=== PATIENT | male | born 1985 | race Native Hawaiian/Other Pacific Islander ===

== ENCOUNTER 2020-04-16 09:09 | Outpatient (REF) | payer OTHER, SELFPAY | END 2020-04-16 09:10 | disposition home or self-care (01) | LOC: HO.LAB 09:09 | PROVIDERS: Visit Provider Internal Medicine | DX: Z20.822 Contact with and (suspected) exposure to COVID-19 (principal) | CPT/HCPCS: 36415; C9803; U0003 ==

== ENCOUNTER 2020-07-23 10:43 | Outpatient (REF) | payer BC, SELFPAY ==
[2020-07-23 14:21] LABS: Hematocrit 47.5 % (42-52); Hemoglobin 15.9 g/dl (14.0-18.0); Mean Corpuscular HGB Conc 33.5 g/dl (31.0-36.0); Mean Corpuscular Hemoglobin 29.5 pg (27.0-33.0); Mean Corpuscular Volume 88.1 fL (80-98); Mean Platelet Volume 10.7 fL (9.4-12.4); Platelet Count 226 X10*3/uL (160-400); Red Blood Count 5.39 X10*6/uL (4.60-5.80); Red Cell Distribution Width 12.2 % (11.0-16.0); White Blood Count 9.1 X10*3/uL (4.8-10.8)
[2020-07-23 14:30] LABS: Estimated Average Glucose 266 mg/dL; Hemoglobin A1c % 10.9 %
[2020-07-23 14:42] LABS: Anion Gap 17 (12-20); Blood Urea Nitrogen 15 mg/dL (9-16); Calcium 9.2 mg/dL (8.4-10.2); Carbon Dioxide 23 mmol/L (22-29); Chloride 99 mmol/L (96-108); Cholesterol 155 mg/dL; Estimated Glomerular Filt Rate > 60; Glucose Random 385 mg/dL (60-115); HDL Cholesterol 35 mg/dL; LDL Cholesterol Calculated 68 mg/dl; Potassium 4.4 mmol/L (3.3-5.1); Sodium 135 mmol/L (135-145); Triglycerides 260 mg/dL
[2020-07-23 14:55] LABS: Thyroid Stimulating Hormone 1.28 uIU/mL (0.32-4.0)
[2020-07-23 15:09] LABS: Vitamin B12 573 pg/mL (200-900)
== END 2020-07-23 10:44 | disposition home or self-care (01) ==
LOC: HO.HMGCLDS 10:43
PROVIDERS: PCP Internal Medicine; Visit Provider Internal Medicine
DX: E11.9 Type 2 diabetes mellitus without complications (principal)
CPT/HCPCS: 36415; 80048; 80061; 82607; 82746; 83036; 84443; 85027

== ENCOUNTER 2020-08-06 16:42 | Outpatient (REF) | payer BC, SELFPAY ==
--- NOTE | ~2020-08-06 | XR_ITS ---
EXAMINATION: XR LUMBOSACRAL SPINE CLINICAL INFORMATION: Radiculopathy. Pain COMPARISON: None TECHNIQUE: Three views of the lumbosacral spine. FINDINGS: There is mild straightening of lumbar lordosis. The vertebral heights and alignment is normal. There is loss of L5-S1 disc height. Rest of the disc heights are maintained normal. No visible acute fracture, dislocation or lytic process seen. The paravertebral soft tissues are normal. XR/XR lumbar spine 2-3V IMPRESSION: Mild degenerative disc changes L5-S1 disc level. No visible acute fracture or dislocation seen.
== END 2020-08-06 16:43 | disposition home or self-care (01) ==
LOC: HO.XRAY 16:42
PROVIDERS: PCP Internal Medicine; Visit Provider Internal Medicine
DX: M54.17 Radiculopathy, lumbosacral region (principal)
CPT/HCPCS: 72100

== ENCOUNTER 2020-08-08 16:00 | Outpatient (RCR) | payer OTHER, BC, MEDICAID, SELFPAY ==
--- NOTE | 2020-07-12 08:06 | MHC.PT.EP ---
[facility] [place] Office [place] Office [place] Office [address] Alejandra Lafleur [address] [phone] F: [phone] F: [phone] F: [phone] F: [phone] Physical Therapy Plan of Care Date of Evaluation: 07/12/20 Date of Surgery: Diagnosis: lumbago with sciatica Assessment: The patient resports with a classic posterolateral derangement classified by varying degrees of pain, more pain with flexion/bending, intermittent radicular pain, and improvement with extension forces. I gave him several point of education regarding sitting posture, chair preferences, avoidance of flexion, education regarding holding his one year old, lifting mechanics, and maintaining neutral spine when possible. He will likely respond to the Vera Method progressing to postural strengthening. He is a good candidate for skilled PT. Frequency and Duration: The patient will be seen 2x/week x 4 weeks Short Term Goals: 1.Pt to able to demonstrate proper sitting posture with the use of a lumbar roll to decrease aggravating factors. 2.Pt to be able to demonstrate proper posture for common leisure activities such as crocheting and phone/tablet use. 3.For the patient to demonstrate proper upright sitting posture with use of the lumbar roll to improve compliance and carryover. [employer] Goals: 1.The patient to demonstrate proper lifting mechanics for household chore activities to show improved functional mobility. 2.The patient to report no leg or hip pain in order to show centralization of pain and reduction of lumbar derangement 3. Pt to be able to demonstrate self management of lumbar pain by demonstration of HEP. Treatment Plan: Modalities to reduce pain, spasms and effusion. Manual therapy to restore motion and function. Therapeutic exercise to improve strength and flexibility. Neuromuscular re-education for posture and balance. Therapeutic activities to return to functional activities of daily living. Electronically signed by: Matilde Alvarado PT DPT Please sign and return to therapist. Thank you for your referral.
--- NOTE | 2020-09-05 15:44 | MHC.PT.DC ---
[facility] [place] Office [place] Office [place] Office [address] Alejandra Lafleur [address] [phone] F: [phone] F: [phone] F: [phone] F: [phone] Physical Therapy Discharge Report Diagnosis: lumbago with sciatica Date of Surgery: DOI 06/22/20 Date of Evaluation: 07/12/20 Date of Discharge: 09/05/20 Treatments to Date: 5 Cancellations to Date: 1 No Shows to Date: 0 Discharge Status: Insurance Declined Tx Discharge Summary: Charlie d/c from therapy due to lack of insurance coverage. He would return to therapy when he had new insurance. Electronically signed by: Renetta Lornezo PT, DPT Please sign and return to therapist. Thank you for your referral.
== END 2020-09-05 15:44 | disposition other institution (70) ==
LOC: HO.PT 16:00
PROVIDERS: PCP Internal Medicine; Visit Provider Internal Medicine
DX: M54.40 Lumbago with sciatica, unspecified side (principal)
CPT/HCPCS: 97014; 97110; 97112; 97140; 97162; 97530

== ENCOUNTER 2020-11-21 14:17 | Outpatient (REF) | payer OTHER, SELFPAY ==
--- NOTE | ~2020-11-21 | XR_ITS ---
EXAMINATION: PRE-MRI SCREENING ORBITS. CLINICAL INFORMATION: History of radiopaque foreign body. COMPARISON: None TECHNIQUE: 3 views. FINDINGS: There are no radiopaque foreign body seen in the orbits . The paranasal sinuses are clear. The soft tissues are normal. XR/XR pre mri screening IMPRESSION: No radiopaque foreign body seen in the orbits.
--- NOTE | ~2020-11-21 | MR_ITS ---
MR LUMBAR SPINE WITHOUT CONTRAST CLINICAL INFORMATION: Lumbosacral region radiculopathy. COMPARISON: Lumbar spine radiographs 08/06/2020. TECHNIQUE: MRI of the lumbar spine was obtained using routine sequences without contrast. FINDINGS: There are 5 nonrib-bearing lumbar-type vertebral bodies. Lumbar alignment is normal. Vertebral body heights are maintained. Disc desiccation at the L3-L4, L4-L5, and L5-S1 levels. There is no bone marrow edema. There are no acute fractures. Conus terminates at the L1 level. No significant extra spinal soft tissue findings. Fatty filum terminale. L1-L2: Disc contour is normal. Mild bilateral facet arthropathy. No central canal stenosis and no foraminal stenosis. L2-L3: Small annular disc bulge and mild bilateral facet arthropathy. No central canal stenosis. Mild foraminal encroachment bilaterally. L3-L4: Small annular disc bulge the superimposed shallow central disc protrusion and moderate bilateral facet arthropathy. Mild narrowing of the central canal. Mild bilateral foraminal encroachment. L4-L5: Small annular disc bulge and moderate bilateral facet arthropathy. No central canal stenosis. Mild to moderate bilateral foraminal stenosis. L5-S1: There is an inferiorly migrating left paracentral disc extrusion that compresses the traversing left S1 nerve root within the left S1 lateral recess. Moderate central canal stenosis. Disc osteophyte and facet arthropathy result in moderate bilateral foraminal stenosis with mild mass effect on the exiting L5 nerve roots bilaterally. MR/MR lumbar spine wo con IMPRESSION: Multilevel lumbar spondylosis, greatest at L5-S1 where an inferiorly migrating left paracentral disc extrusion compresses the traversing left S1 nerve root within the left S1 lateral recess and contributes to moderate central canal stenosis. There is moderate bilateral foraminal stenosis at L5-S1 with mild mass effect on the exiting L5 nerve roots bilaterally. Additional degenerative findings throughout the lumbar spine as described.
== END 2020-11-21 14:18 | disposition home or self-care (01) ==
LOC: HO.MRI 14:17
PROVIDERS: PCP Internal Medicine; Visit Provider Internal Medicine
DX: M54.17 Radiculopathy, lumbosacral region (principal)
CPT/HCPCS: 72148

== ENCOUNTER → 2020-12-06 09:57 | Outpatient (BNVA) | payer BC, MEDICAID, SELFPAY | PROVIDERS: PCP Internal Medicine; Referring Provider Internal Medicine; Visit Provider Physician Assistant ==

== ENCOUNTER → 2020-12-26 08:15 | Outpatient (BNVA) | payer BC, MEDICAID, SELFPAY | PROVIDERS: PCP Internal Medicine; Visit Provider Surgery ==

== ENCOUNTER 2020-12-31 12:22 | Outpatient (REF) | payer BC, MEDICAID, SELFPAY ==
--- NOTE | ~2020-12-31 | XR_ITS ---
EXAMINATION: XR CHEST CLINICAL INFORMATION: Obesity COMPARISON: None TECHNIQUE: 2 views of the chest were obtained. FINDINGS: No significant abnormality is noted involving the heart, lungs, mediastinum, bony thorax or soft tissues. XR/XR chest 2V IMPRESSION: Unremarkable examination.
--- NOTE | 2020-12-31 13:01 | ECG_ITS ---
Test Reason : obesity Blood Pressure : / mmHG Vent. Rate : 092 BPM Atrial Rate : 092 BPM P-R Int : 176 ms QRS Dur : 096 ms QT Int : 370 ms P-R-T Axes : 033 042 026 degrees QTc Int : 457 ms Normal sinus rhythm Normal ECG When compared with ECG of 26-JUN-2017 17:43, No significant change was found Referred By: Vasyl Lambert Electronically Signed By:MONIK GUY
[2020-12-31 13:45] LABS: MANUAL DIFF FLAG NO
[2020-12-31 13:59] LABS: Basophils Absolute Auto 0.1 X10*3/uL (0.0-0.2); Basophils Percent Auto 0.8 % (0-2); Eosinophils Absolute Auto 0.2 X10*3/uL (0.0-0.4); Eosinophils Percent Auto 2.3 % (0-4); Hematocrit 44.4 % (42-52); Hemoglobin 15.3 g/dl (14.0-18.0); Imm Gran Abs Auto 0.05 X10*3/uL (0.00-0.03); Imm Gran Pct Auto 0.7 % (0.0-0.4); Lymphocytes Absolute Auto 2.6 X10*3/uL (1.2-4.9); Lymphocytes Percent Auto 33.8 % (20-40); Mean Corpuscular HGB Conc 34.5 g/dl (31.0-36.0); Mean Corpuscular Hemoglobin 29.4 pg (27.0-33.0); Mean Corpuscular Volume 85.4 fL (80-98); Mean Platelet Volume 10.5 fL (9.4-12.4); Monocytes Absolute Auto 0.6 X10*3/uL (0.1-1.2); Monocytes Percent Auto 7.3 % (2-11); Neutrophils Absolute Auto 4.2 X10*3/uL (2.0-8.3); Neutrophils Percent Auto 55.1 % (45-73); Platelet Count 240 X10*3/uL (160-400); Red Cell Distribution Width 12.3 % (11.0-16.0); White Blood Count 7.6 X10*3/uL (4.8-10.8)
[2020-12-31 14:11] LABS: Estimated Average Glucose 255 mg/dL; Hemoglobin A1c % 10.5 %
[2020-12-31 14:22] LABS: Alanine Aminotransferase 110 U/L (0-40); Albumin Level 4.7 g/dL (3.5-5.0); Alkaline Phosphatase 79 U/L (39-117); Anion Gap 15 (12-20); Aspartate Amino Transferase 47 U/L (5-37); Bilirubin Total 0.9 mg/dL (0.0-1.0); Blood Urea Nitrogen 10 mg/dL (9-16); C Reactive Protein 0.68 mg/dL (< or = 0.50); Calcium 9.5 mg/dL (8.4-10.2); Carbon Dioxide 27 mmol/L (22-29); Chloride 103 mmol/L (96-108); Cholesterol 157 mg/dL; Estimated Glomerular Filt Rate > 60; Glucose Random 306 mg/dL (60-115); HDL Cholesterol 38 mg/dL; Iron 95 mcg/dL (45-160); LDL Cholesterol Calculated 86 mg/dl; Percent Iron Saturation 27 % (15-50); Potassium 4.6 mmol/L (3.3-5.1); Sodium 140 mmol/L (135-145); Total Iron Binding Capacity 350 mcg/dL (228-428); Total Protein 7.8 g/dL (6.5-8.0); Triglycerides 165 mg/dL; Unsaturated Iron Binding 255 ug/dL
[2020-12-31 14:40] LABS: Ferritin 674 ng/mL (20-250); TSH reflex Free T4 1.87 uIU/mL (0.32-4.0); Vitamin D 25-OH Total 31.4 ng/mL (>30)
[2020-12-31 15:18] LABS: Folate 18.2 ng/mL (> or = 4.0); Vitamin B12 573 pg/mL (200-900)
[2020-12-31 16:01] LABS: Appearance Urine CLEAR; Color Urine YELLOW; Glucose Urine UA >=1000 MG/DL (NEG); Leukocyte Esterase Urine NEG (NEG); Nitrite Urine NEG (NEG); PH 5.5 (5.0-8.0); Specific Gravity - Urine >= 1.030 (1.005-1.025); Urine Blood NEG (NEG); Urine Ketones 5 MG/DL (NEG); Urine Protein NEG (NEG-TRACE)
[2020-12-31 16:10] LABS: Creatinine Urine 178.85 mg/dL; Microalbum/Creatinine Ratio Ur 12.3 ug/mg cr
[2020-12-31 16:58] LABS: Mucus Urine TRACE /LPF; RBC Urine 0-2 /HPF (0); Squamous Epithelial Cell Urine TRACE /LPF; WBC Urine 0 /HPF (0-4)
[2021-01-01 16:16] LABS: Calcium (PTHI) 8.9 mg/dL (8.6-10.3); PTHI 61 pg/mL (14-64)
[2021-01-02 01:06] LABS: Insulin Level Total 15.8 uIU/mL
[2021-01-03 06:57] LABS: Zinc 88 mcg/dL (60-130)
[2021-01-05 00:22] LABS: Vitamin A 37 mcg/dL (38-98)
[2021-01-05 12:17] LABS: Vitamin B1 14 nmol/L (8-30)
== END 2020-12-31 12:23 | disposition home or self-care (01) ==
LOC: HO.XRAY 12:22
PROVIDERS: Absent Provider Internal Medicine; PCP Internal Medicine; Visit Provider Surgery
DX: Z00.00 Encounter for general adult medical examination without abnormal findings (principal); E66.9 Obesity, unspecified; E11.65 Type 2 diabetes mellitus with hyperglycemia; G47.30 Sleep apnea, unspecified; I10 Essential (primary) hypertension
CPT/HCPCS: 36415; 71046; 80053; 80061; 81001; 81003; 82043; 82306; 82607; 82728; 82746; 83036; 83525; 83540; 83970; 84425; 84443; 84590; 84630; 85025; 86140; 93005

== ENCOUNTER → 2021-01-21 08:05 | Outpatient (BNVA) | payer BC, MEDICAID, SELFPAY | PROVIDERS: PCP Internal Medicine; Visit Provider Surgery ==

== ENCOUNTER → 2021-01-23 08:12 | Outpatient (BNVA) | payer BC, MEDICAID, SELFPAY | PROVIDERS: PCP Internal Medicine; Visit Provider Dietitian, Registered | DX: E66.9 Obesity, unspecified (principal) | CPT/HCPCS: 97802 ==

== ENCOUNTER 2021-01-24 09:57 | Outpatient (REF) | payer BC, MEDICAID, SELFPAY | END 2021-01-24 09:58 | disposition home or self-care (01) | LOC: HO.SL 09:57 | PROVIDERS: PCP Internal Medicine; Visit Provider Surgery | DX: G47.10 Hypersomnia, unspecified (principal); G47.19 Other hypersomnia; G47.30 Sleep apnea, unspecified; E66.9 Obesity, unspecified; I10 Essential (primary) hypertension | CPT/HCPCS: 95806 ==

== ENCOUNTER → 2021-02-07 14:05 | Outpatient (BNVA) | payer BC, MEDICAID, SELFPAY | PROVIDERS: PCP Internal Medicine; Visit Provider Internal Medicine ==

== ENCOUNTER → 2021-03-18 08:09 | Outpatient (BNVA) | payer BC, MEDICAID, SELFPAY | PROVIDERS: PCP Internal Medicine; Visit Provider Surgery ==

== ENCOUNTER 2021-03-19 08:11 | Outpatient (REF) | payer BC, MEDICAID, OTHER, SELFPAY ==
[2021-03-20 14:08] LABS: H Pylori Breath Test Negative (Negative)
== END 2021-03-19 08:12 | disposition home or self-care (01) ==
LOC: HO.LNP 08:11
PROVIDERS: Surgery; PCP Internal Medicine; Referring Provider Internal Medicine; Visit Provider Physician Assistant Surgical
DX: E66.9 Obesity, unspecified (principal); I10 Essential (primary) hypertension; G47.30 Sleep apnea, unspecified
CPT/HCPCS: 83013

== ENCOUNTER 2021-03-26 14:30 | Emergency (ER) | payer BC, SELFPAY ==
--- NOTE | ~2021-03-26 | XR_ITS ---
EXAMINATION: XR CHEST CLINICAL INFORMATION: SOB. COMPARISON: Chest 12/31/2020 TECHNIQUE: Frontal view of the chest was obtained. FINDINGS: The lungs are well-expanded with patchy groundglass opacities in right middle lobe. Question developing infiltrate. Rest of lungs are clear. The heart size and pulmonary vascularity is normal. No gross bony abnormality seen. XR/XR chest 1V IMPRESSION: Question developing infiltrate right lower lobe. No acute cardiopulmonary process seen.
[2021-03-26 15:46] VITALS: BP 124/67; PULSE 97; RESP 16; TEMP 37.3; O2SAT 98; BMI 34.9
[2021-03-26 16:06] LABS: Basophils Percent Auto 0.1 % (0-2); Eosinophils Percent Auto 0.1 % (0-4); Hematocrit 43.7 % (42.0-52.0); Hemoglobin 14.6 g/dl (14.0-18.0); Imm Gran Abs Auto 0.04 X10*3/uL (0.00-0.03); Imm Gran Pct Auto 0.6 % (0.0-0.4); Lymphocytes Absolute Auto 1.7 X10*3/uL (1.2-4.9); Lymphocytes Percent Auto 24.9 % (20-40); MANUAL DIFF FLAG SCAN; Mean Corpuscular HGB Conc 33.4 g/dl (31.0-36.0); Mean Corpuscular Hemoglobin 29.4 pg (27.0-33.0); Mean Corpuscular Volume 87.9 fL (80.0-98.0); Mean Platelet Volume 10.4 fL (9.4-12.4); Monocytes Absolute Auto 0.5 X10*3/uL (0.1-1.2); Monocytes Percent Auto 7.1 % (2-11); Neutrophils Absolute Auto 4.6 x10*3/uL (2.0-8.3); Neutrophils Percent Auto 67.2 % (45-73); Platelet Count 161 X10*3/uL (160-400); Red Blood Count 4.97 X10*6/uL (4.60-5.80); Red Cell Distribution Width 12.1 % (11.0-16.0); SCAN SMEAR FLAG 1; White Blood Count 6.9 X10*3/uL (4.8-10.8)
[2021-03-26 16:20] LABS: Anion Gap 15 (12-20); Blood Urea Nitrogen 12 mg/dL (9-16); Carbon Dioxide 31 mmol/L (22-29); Chloride 99 mmol/L (96-108); Creatinine Clr Calc Pharmacy 115.3; Estimated Glomerular Filt Rate > 60; Glucose Random 243 mg/dL (60-115); Potassium 4.5 mmol/L (3.3-5.1); Sodium 140 mmol/L (135-145)
[2021-03-26 16:38] LABS: SLIDE REVIEW VERIFIED
--- NOTE | 2021-03-26 17:13 | ED_ITS ---
HPI - SOB/Dyspnea General Chief Complaint: Dyspnea Stated Complaint: COVID+, SOB, Chest pain Time Seen by Provider: 03/26/21 16:53 Source: patient Mode of arrival: ambulatory History of Present Illness HPI Narrative: 35-year-old male with past medical history of anxiety, depression, hypertension, obesity, JULIA, diabetes, presenting to the ED complaining cough, fever, myalgias, generalized fatigue, SOB, chest discomfort worse with breathing/movement, lightheadedness, decreased p.o. intake s/p testing positive for COVID-19 five days ago. Denies recent travel, pedal edema, cigarette smoking, calf pain MD elicited complaint: shortness of breath, cough, pain with inspiration and chest pain Related Data Previous Rx's Medication Instructions Recorded blood sugar diagnostic (FreeStyle #100 ea 09/14/20 Lite Strips) blood-glucose meter (FreeStyle #1 ea 09/14/20 Lite Meter) lancets 28 gauge (FreeStyle #100 ea 09/14/20 Lancets) metformin 500 mg tablet 500 mg PO BID #180 tab 02/04/21 nabumetone 500 mg tablet 500 mg PO BID PRN 30 Days #60 tab 02/05/21 acetaminophen 500 mg tablet 500 mg PO Q6H PRN #20 tab 03/26/21 (Tylenol Extra Strength) albuterol sulfate 90 mcg/actuation 2 puff INHALATION Q4-6H PRN #6.7 g 03/26/21 aerosol inhaler doxycycline hyclate 100 mg tablet 100 mg PO BID 7 Days #14 tab 03/26/21 Allergies Allergy/AdvReac Type Severity Reaction Status Date / Time dexamethasone Allergy Mild Hives Verified 02/07/21 14:16 Review of Systems Review of Systems: Constitutional: + Fever, + Chills, No Night Sweats, + Fatigue, No Malaise ENT/Mouth: No Ear Pain, + Nasal Congestion, No sore throat, + Rhinorrhea, No Swallowing Difficulty Eyes: No Eye Pain, No Discharge, No Vision Changes Cardiovascular: + Chest Pain, + SOB, No Dyspnea on Exertion, No Orthopnea, No Edema, No Palpitations Respiratory: No Cough, No Sputum, No Wheezing, No Dyspnea Gastrointestinal: + Nausea, No Vomiting, + Diarrhea, No Constipation, No Abdominal pain Genitourinary: No Dysuria, No Flank Pain, No Urinary Flow Changes, No Hesitancy Musculoskeletal: No joint pain, No Myalgias, No Joint Swelling Skin: No Skin Lesions, No rash Neuro: + Weakness, No Loss of Consciousness, +Lightheadedness, No Headache Yes all other systems are reviewed and are negative [facility] Past Medical History Attestation statement: The following information was validated with the patient. Medical History Anxiety Depression Headache Hypertension Left lumbosacral radiculopathy Low back pain radiating to left lower extremity Low back pain with sciatica Non-insulin dependent diabetes mellitus Obesity (BMI 30-39.9) Obstructive sleep apnea Sleep apnea Type 2 diabetes mellitus with hyperglycemia Type 2 diabetes mellitus without complications Surgical History No history of previous surgery Family History Family History Mother No problems noted. Father No problems noted. Social History Social History Housing: Apartment Alcohol intake: current Alcohol intake frequency: holidays/special occasions only Patient Tobacco Use Status: Never used Tobacco Advance Directives: No Advance Directives Information Provided: No service: No Current occupational status: unemployed Physical Exam Vital Signs: Vital Signs: Last Vital Signs Temp 99.3 F 03/26/21 18:02 Pulse 100 03/26/21 18:02 Resp 18 03/26/21 18:02 BP 113/70 03/26/21 18:02 Pulse Ox 95 03/26/21 18:02 BMI result Body Mass Index 34.9 Const: General: cooperative, healthy appearing, comfortable and no acute distress Orientation/consciousness: patient oriented x3 Limitations: no limitations HENMT: Head: Yes normal to inspection Ears: hearing grossly normal bilaterally General nose exam: Normal external nose present Face and sinus: Yes normal facial exam Eyes: General: appearance normal, both eyes and all related structures EOM: EOMs intact bilaterally Neck: Neck: Yes normal visual inspection and Yes no meningeal signs Resp: Effort & Inspection: normal respiratory effort Auscultation: clear to auscultation bilaterally, no rales, rhonchi right lower and no wheezes Cardio: Rate: regular rate Heart sounds: S1 normal heart sound present and S2 normal heart sound present GI: Inspection: Yes normal to inspection Palpation (GI): Soft to palpation, nontender, no guarding and not rigid Skin: Rashes: no rashes Wounds: no wounds Neuro: General: patient oriented x3 and no meningeal signs Gait exam (Neuro): Normal gait present Extrem: General: Yes normal to inspection, Yes no pedal edema and Yes no calf tenderness Course Course Course Narrative: XR chest 1V IMPRESSION: Question developing infiltrate right lower lobe. No acute cardiopulmonary process seen. -1725--no leukocytosis. H&H stable. -1834--D-dimer negative. Lactic negative. Troponin negative. AST/ALT chronically elevated. LDH/CRP mildly elevated >> results discussed with patient including worrisome signs and symptoms and strict return precautions and needed close follow-up with PCP MDM - SOB/Dyspnea MDM Narrative Medical decision making narrative: 35-year-old male with past medical history of anxiety, depression, hypertension, obesity, JULIA, diabetes, presenting to the ED complaining cough, fever, myalgias, generalized fatigue, SOB, chest discomfort worse with breathing/movement, lightheadedness, decreased p.o. intake s/p testing positive for COVID-19 five days ago. On exam low-grade temp 99.1?, rhonchi in RLL, no pedal edema. Concern for continued viral syndrome/COVID-19 vs COVID pneumonia vs PE. Symptoms atypical for ACS. Low concern for sepsis as known viral etiology Plan: EKG, labs, CXR, IVF, lactic/blood cultures Differential Diagnosis Differential diagnosis: Likely acute exacerbation of chronic obstructive airways disease, pneumonia, asthma with exacerbation and pulmonary embolism Medical Records Attestation: I reviewed the patient's medical records. Lab Data Attestation: I reviewed the patient's lab results. Result diagrams: 03/26/21 15:58 03/26/21 15:58 Labs: Lab Results 03/26/21 03/26/21 03/26/21 Range/Units 15:58 15:58 15:58 WBC 6.9 (4.8-10.8) X10*3/uL RBC 4.97 (4.60-5.80) X10*6/uL Hgb 14.6 (14.0-18.0) g/dl Hct 43.7 (42.0-52.0) % MCV 87.9 (80.0-98.0) fL MCH 29.4 (27.0-33.0) pg MCHC 33.4 (31.0-36.0) g/dl RDW 12.1 (11.0-16.0) % Plt Count 161 (160-400) X10*3/uL MPV 10.4 (9.4-12.4) fL Immature Gran % (Auto) 0.6 H (0.0-0.4) % Neut % (Auto) 67.2 (45-73) % Lymph % (Auto) 24.9 (20-40) % [facility] % (Auto) 7.1 (2-11) % Eos % (Auto) 0.1 (0-4) % Baso % (Auto) 0.1 (0-2) % Lymph # (Auto) 1.7 (1.2-4.9) X10*3/uL [facility] # (Auto) 0.5 (0.1-1.2) X10*3/uL Eos # (Auto) 0.0 (0.0-0.4) X10*3/uL Baso # (Auto) 0.0 (0.0-0.2) X10*3/uL Abs Immat Gran (auto) 0.04 H (0.00-0.03) X10*3/uL Absolute Neuts (auto) 4.6 (2.0-8.3) x10*3/uL Absolute Nucleated RBC 0.000 (0.0-0.012) X10*3/uL Nucleated RBC % (auto) 0.0 (0.0-0.2) /100WBC Smear Tech's Comments VERIFIED D-Dimer High Sensitivty NG/ML Sodium 140 (135-145) mmol/L Potassium 4.5 (3.3-5.1) mmol/L Chloride 99 (96-108) mmol/L Carbon Dioxide 31 H (22-29) mmol/L Anion Gap 15 (12-20) BUN 12 (9-16) mg/dL Creatinine 1.09 (0.5-1.4) mg/dL Estim Creat Clear Calc 115.3 Estimated GFR > 60 Random Glucose 243 H (60-115) mg/dL Lactic Acid (0.5-2.0) mmol/L Calcium 9.0 (8.4-10.2) mg/dL Magnesium 2.3 (1.6-2.6) mg/dL Ferritin 2557 H (20-250) ng/mL Total Bilirubin 1.0 (0.0-1.0) mg/dL Direct Bilirubin 0.5 (0.0-0.5) mg/dL AST 72 H (5-37) U/L ALT 128 H (0-40) U/L Alkaline Phosphatase 62 D (39-117) U/L Lactate Dehydrogenase 374 H (118-273) U/L Troponin I High Sens (<3.5-35.0) ng/L C-Reactive Protein 5.86 H (< or = 0.50) mg/dL B-Natriuretic Peptide (<100) pg/mL Total Protein 7.7 (6.5-8.0) g/dL Albumin 4.2 (3.5-5.0) g/dL Procalcitonin 0.11 ng/mL 03/26/21 03/26/21 03/26/21 Range/Units 15:58 17:49 17:49 WBC (4.8-10.8) X10*3/uL RBC (4.60-5.80) X10*6/uL Hgb (14.0-18.0) g/dl Hct (42.0-52.0) % MCV (80.0-98.0) fL MCH (27.0-33.0) pg MCHC (31.0-36.0) g/dl RDW (11.0-16.0) % Plt Count (160-400) X10*3/uL MPV (9.4-12.4) fL Immature Gran % (Auto) (0.0-0.4) % Neut % (Auto) (45-73) % Lymph % (Auto) (20-40) % [facility] % (Auto) (2-11) % Eos % (Auto) (0-4) % Baso % (Auto) (0-2) % Lymph # (Auto) (1.2-4.9) X10*3/uL [facility] # (Auto) (0.1-1.2) X10*3/uL Eos # (Auto) (0.0-0.4) X10*3/uL Baso # (Auto) (0.0-0.2) X10*3/uL Abs Immat Gran (auto) (0.00-0.03) X10*3/uL Absolute Neuts (auto) (2.0-8.3) x10*3/uL Absolute Nucleated RBC (0.0-0.012) X10*3/uL Nucleated RBC % (auto) (0.0-0.2) /100WBC Smear Tech's Comments D-Dimer High Sensitivty 174 NG/ML Sodium (135-145) mmol/L Potassium (3.3-5.1) mmol/L Chloride (96-108) mmol/L Carbon Dioxide (22-29) mmol/L Anion Gap (12-20) BUN (9-16) mg/dL Creatinine (0.5-1.4) mg/dL Estim Creat Clear Calc Estimated GFR Random Glucose (60-115) mg/dL Lactic Acid 1.0 (0.5-2.0) mmol/L Calcium (8.4-10.2) mg/dL Magnesium (1.6-2.6) mg/dL Ferritin (20-250) ng/mL Total Bilirubin (0.0-1.0) mg/dL Direct Bilirubin (0.0-0.5) mg/dL AST (5-37) U/L ALT (0-40) U/L Alkaline Phosphatase (39-117) U/L Lactate Dehydrogenase (118-273) U/L Troponin I High Sens < 3.5 (<3.5-35.0) ng/L C-Reactive Protein (< or = 0.50) mg/dL B-Natriuretic Peptide < 10 (<100) pg/mL Total Protein (6.5-8.0) g/dL Albumin (3.5-5.0) g/dL Procalcitonin ng/mL ECG Data Attestation: I personally reviewed and interpreted this ECG as follows: ECG interpretation date: 03/26/21 Discharge Plan Discharge Clinical Impression: Pneumonia due to COVID-19 virus Patient Disposition: Home, Self-Care Instructions: Covid-19 Viral Syndrome and Novel Coronavirus (ED) Hey/Ath Additional Instructions: Your x-ray shows developing COVID pneumonia. Doxycycline is antibiotic please take as prescribed In addition albuterol in have helped shortness of breath/wheezing Monitor your temperatures at, take Tylenol for fever. If fevers not result Tylenol take Motrin Your blood work was reassuring If symptoms persist or worsen, you develop constant worsening shortness of breath, chest pain, fever unresolved with medications please return to the ED Prescriptions: New acetaminophen [Tylenol Extra Strength] 500 mg tablet 500 mg PO Q6H PRN (Reason: pain or fever) Qty: 20 RF: 0 doxycycline hyclate 100 mg tablet 100 mg PO BID 7 Days Qty: 14 RF: 0 albuterol sulfate 90 mcg/actuation HFA aerosol inhaler 2 puff inhalation Q4-6H PRN (Reason: shortness of breath or wheezing) Qty: 6.7 RF: 0 No Action metformin 500 mg tablet 500 mg PO BID Qty: 180 RF: 0 nabumetone 500 mg tablet 500 mg PO BID PRN (Reason: headache / pain) 30 Days Qty: 60 RF: 0 (DME) FreeStyle Lite Strips Strip See Rx Instructions .ROUTE .MEDSUPPLY Qty: 100 RF: 12 (DME) blood-glucose meter [FreeStyle Lite Meter] Kit See Rx Instructions .ROUTE .MEDSUPPLY Qty: 1 RF: 0 (DME) lancets [FreeStyle Lancets] 28 gauge misc See Rx Instructions .ROUTE .MEDSUPPLY Qty: 100 RF: 12 Referrals: Quincy Chávez MD [Primary Care Provider] - 3 days (call)
--- NOTE | 2021-03-26 17:23 | ECG_ITS ---
Test Reason : cp Blood Pressure : / mmHG Vent. Rate : 088 BPM Atrial Rate : 088 BPM P-R Int : 182 ms QRS Dur : 086 ms QT Int : 372 ms P-R-T Axes : 038 019 012 degrees QTc Int : 450 ms Normal sinus rhythm Normal ECG When compared with ECG of 31-DEC-2020 13:08, No significant change was found Referred By: Lashae Menchaca Electronically Signed By:TYLER KNOX
[2021-03-26 17:29] LABS: B Type Natriuretic Peptide < 10 pg/mL (<100)
[2021-03-26 17:32] LABS: Alanine Aminotransferase 128 U/L (0-40); Albumin Level 4.2 g/dL (3.5-5.0); Alkaline Phosphatase 62 U/L (39-117); Aspartate Amino Transferase 72 U/L (5-37); Bilirubin Direct 0.5 mg/dL (0.0-0.5); C Reactive Protein 5.86 mg/dL (< or = 0.50); Lactate Dehydrogenase 374 U/L (118-273); Magnesium 2.3 mg/dL (1.6-2.6); Total Protein 7.7 g/dL (6.5-8.0)
[2021-03-26 17:38] LABS: Procalcitonin 0.11 ng/mL
[2021-03-26] MEDS: ondansetron HCL 4 MG/2 ML VIAL IVPUSH (17:52)
[2021-03-26] MEDS: 0.9 % Sodium Chloride 1,000 ML 999 ML IVCONT (17:59)
[2021-03-26 18:02] VITALS: BP 113/70; PULSE 100; RESP 18; TEMP 37.4; O2SAT 95
[2021-03-26] MEDS: Acetaminophen 325 MG TABLET 650 MG PO (18:03)
[2021-03-26 18:07] LABS: D Dimer High Sensitivity 174 NG/ML
[2021-03-26 18:26] LABS: Troponin-I High Sensitivity < 3.5 ng/L (<3.5-35.0)
[2021-03-26 18:41] LABS: Ferritin 2557 ng/mL (20-250)
== END 2021-03-26 19:01 | disposition home or self-care (01) ==
PROVIDERS: Emergency Medicine; Physician Assistant; Emergency Provider Emergency Medicine; PCP Internal Medicine
DX: U07.1 COVID-19 (principal); J12.82 Pneumonia due to coronavirus disease 2019; I10 Essential (primary) hypertension; E11.9 Type 2 diabetes mellitus without complications
CPT/HCPCS: 36415; 71045; 80048; 80076; 82728; 83605; 83615; 83735; 83880; 84145; 84484; 85025; 85379; 86140; 87040; 93005; 96361; 96374; 99284; J2405

== ENCOUNTER 2021-05-09 10:47 | Outpatient (REF) | payer BC, SELFPAY ==
--- NOTE | ~2021-05-09 | US_ITS ---
EXAMINATION: US COMPLETE ABDOMEN WITH LIVER ELASTOGRAPHY CLINICAL INFORMATION: Obesity COMPARISON: None. TECHNIQUE: Real-time imaging of the abdominal viscera. Noninvasive ultrasound liver fibrosis assessment is performed using Chaitanya ElastPQ point quantification shear wave elastography (2D-SWE) with a C5-2 MHz transducer. Multiple elastography samples are obtained. Today's examination is mildly limited secondary to overlying bowel gas. FINDINGS: PANCREAS: Visualized portions of pancreas are normal in appearance. ABDOMINAL AORTA: The proximal, middle, and distal aortic segments are normal in caliber. INFERIOR VENA CAVA: Visualized portions are normal. LIVER: The right lobe measures 22 cm in length. The left lobe measures 16 cm in length. Portal flow is hepatopedal. There is overall diffusely increased liver echogenicity. Ill-defined area of decreased echogenicity within the right hepatic lobe which measures approximately 1.5 cm is nonspecific. Shear wave liver elastography median stiffness is 1.38 m/s (reference: normal median stiffness is 1.3 m/s or less). IQR/median stiffness to assess sampling precision is 0.7 (reference: good quality data set is IQR/median stiffness of 0.15 or less). GALLBLADDER: Normal. The gallbladder is physiologically distended without evidence of stones, sludge, polyps, wall thickening or pericholecystic fluid. Negative sonographic Seth's sign. COMMON BILE DUCT: Normal in caliber measuring 0.5 cm in diameter. RIGHT KIDNEY: Normal. No hydronephrosis. No renal calculi or focal parenchymal lesions. The kidney measures 13 cm in maximum dimension. LEFT KIDNEY: Normal. No hydronephrosis. No renal calculi or focal parenchymal lesions. The kidney measures 12 cm in maximum dimension. SPLEEN: The spleen measures 13.5 cm in maximum dimension. FREE FLUID: None. US/US abdomen comp w elastography IMPRESSION: 1. The liver is mildly enlarged and demonstrates diffusely increased echogenicity. Findings are nonspecific but most suggestive of hepatic steatosis. There are suspected areas of focal fatty sparing within the right hepatic lobe. Clinical correlation recommended. 2. Liver elastography: In the absence of other known clinical signs, measurements rule out compensated advanced chronic liver disease. If there are known clinical signs, further testing may be needed for confirmation. However, an IQR/median stiffness of 0.7 may indicate port sampling. Clinical correlation recommended. 3. The spleen is mildly enlarged. REFERENCE: Society of Radiologists in Ultrasound Liver Stiffness Thresholds (2020): LIVER STIFFNESS THRESHOLDS: *Liver Stiffness equal or less than 1.3 m/s: High probability of being normal. *Liver Stiffness less than 1.7 m/s: In the absence of other known clinical signs, rules out compensated advanced chronic liver disease. *Liver Stiffness 1.7-2.1 m/s: Suggestive of compensated advanced chronic liver disease but need further test for confirmation. *Liver Stiffness over 2.1 m/s: Rules in compensated advanced chronic liver disease. *Liver Stiffness over 2.4 m/s: Suggestive of clinically significant portal hypertension. QUALITY OF DATA SET: *IQR/Median value equal or less than 0.15 implies a quality data set. *IQR/Median value over 0.15 implies a poor quality data set. SIGNIFICANT CHANGE FROM PRIOR EXAM: Significant change if liver stiffness measurement is 10% or greater from prior exam. OTHER CONSIDERATIONS: The stage of liver fibrosis may be overestimated in the setting of acute hepatitis, liver inflammation, elevated liver function tests, hepatic vascular congestion, obstructive cholestasis, non-fasting state, and infiltrative diseases such as amyloidosis and lymphoma. In some patients with NAFLD, the liver stiffness thresholds for compensated advanced chronic liver disease may be lower. In causes other than viral hepatitis and NAFLD, liver stiffness thresholds are not well established.
== END 2021-05-09 10:48 | disposition home or self-care (01) ==
LOC: HO.US 10:47
PROVIDERS: PCP Internal Medicine; Visit Provider Surgery
DX: E66.9 Obesity, unspecified (principal); G47.30 Sleep apnea, unspecified; I10 Essential (primary) hypertension
CPT/HCPCS: 76705; 76981

== ENCOUNTER 2021-06-14 11:00 | Outpatient (RCR) | payer OTHER, BC, SELFPAY | END 2021-06-21 08:47 | disposition home or self-care (01) | LOC: HO.PT 11:00 | PROVIDERS: PCP Internal Medicine; Visit Provider Neurological Surgery | DX: M54.16 Radiculopathy, lumbar region (principal) | CPT/HCPCS: 97110; 97112; 97140; 97161; 97530 ==

== ENCOUNTER 2021-11-19 08:00 | Outpatient (RCR) | payer OTHER, MEDICAID, SELFPAY ==
--- NOTE | 2021-11-19 09:00 | MHC.PT.EP ---
[facility] [place] [facility] [place] [facility] [place] [facility] [address] Alejandra Lafleur [address] [phone] F: [phone] F: [phone] F: [phone] F: [phone] Physical Therapy Plan of Care Date of Evaluation: Date of Surgery: Diagnosis: CHRONIC LOW BACK PAIN Assessment: POONAM IS A PLEASANT 36 YO MALE WHO RETURNS TO PT FOR LOW BACK PAIN. AT DC FOLLOWING PREVIOUS PT, THERE HAD BEEN GOOD RESOLUTIONS OF SYMPTOMS BUT Pt REPORTS A GRADUAL RETURN IN SYMPTOMS AFTER DC. HE IS ABLE TO RECALL ABOUT 50% OF PREVIOUS HEP AND IS WALKING FOR FITNESS WELL. UPON EXAM IMPAIRMENTS INCLUDE DECREASED LUMBAR ROM, DECREASED LE STRENGTH, ALTERED POSTURE AND POSITIONING AND INCREASED PAIN. FUNCTIONAL LIMITATIONS INCLUDE DECREASED ABILITY TO PERFORM HOMEMAKING AND CHILDCARE TASKS, DECREASED ABILITY TO PERFORM LIFTING, SQUATTING, PUSHING AND PULLING. HE REPORTS DECREASED PARTICIPTAION IN FITNESS AND RECREATIONAL ACTIVITIES AND DISRUPTED SLEEP. POONAM IS A GOOD CANDIDATE FOR SKILLED PT DUE TO AGE, POTENTIAL REMEDIATION OF IMPAIRMENTS, TYPICAL DISEASE/CONDITION PROGRESSION AND PROGNOSIS, COMORBIDITIES, AND MOTIVATION. Pt WOULD BENEFIT FROM TAILORED PROGRAM OF THERAPEUTIC ACTIVITIES, FUNCTIONAL TRAINING, GAIT TRAINING, POSTURAL EDUCATION, NEUROMUSCULAR RE-EDUCATION, AND MODALITIES NEEDED WITH FOCUS ON REVIEWING AND PROGRESSING PREVIOUS HEP FOR SUCESSFUL RETURN TO INDEPENDENT MANAGEMENT OF SYMPTOMS. Frequency and Duration: The patient will be seen 2 X WEEK FOR 2 WEEKS Short Term Goals: REVIEW AND PROGRESS PREVIOUS HEP-MET [employer] Supervisor Goals: FULL LUMBAR ROM FULL LE STRENGTH 5/5, EQUAL OBED TO PERFORM ALL ADL AND HOMEMAKING TASKS WITHOUT PAIN GREATER THAN 2/10 INDEPENDENT HEP- MET Treatment Plan: Modalities to reduce pain, spasms and effusion. Manual therapy to restore motion and function. Therapeutic exercise to improve strength and flexibility. Neuromuscular re-education for posture and balance. Therapeutic activities to return to functional activities of daily living. Electronically signed by: RAÚL CABEZAS PT, DPT Please sign and return to therapist. Thank you for your referral.
== END 2021-11-19 09:00 | disposition home or self-care (01) ==
LOC: HO.PT 08:00
PROVIDERS: PCP Internal Medicine; Visit Provider Internal Medicine
DX: M54.50 Low back pain, unspecified (principal)
CPT/HCPCS: 97110; 97161

== ENCOUNTER → 2021-12-12 08:48 | Outpatient (BNVA) | payer SELFPAY | PROVIDERS: PCP Internal Medicine; Visit Provider Physician Assistant | DX: Z02.79 Encounter for issue of other medical certificate (principal) ==

== ENCOUNTER → 2022-01-30 11:08 | Outpatient (BNVA) | payer OTHER, SELFPAY | PROVIDERS: PCP Internal Medicine; Referring Provider Internal Medicine; Visit Provider Physician Assistant Surgical | DX: E66.9 Obesity, unspecified (principal); Z68.34 Body mass index [BMI] 34.0-34.9, adult | CPT/HCPCS: 99212 ==

== ENCOUNTER 2022-02-03 08:02 | Outpatient (REF) | payer OTHER, SELFPAY ==
--- NOTE | ~2022-02-03 | XR_ITS ---
EXAMINATION: XR LUMBOSACRAL SPINE CLINICAL INFORMATION: M54.50 - Low back pain, unspecified COMPARISON: MR lumbar spine 11/21/2020, radiographs lumbar spine 08/06/2020. TECHNIQUE: Three views of the lumbosacral spine. FINDINGS: Normal lumbar segmentation with 5 nonrib-bearing lumbar vertebrae of normal height and normal lumbar lordosis. Normal bony mineralization. No vertebral compression or spondylolisthesis or destructive process. No focal interval disc narrowing or endplate sclerosis or erosive change. The SI joints and visualized sacrum are unremarkable. XR/XR lumbar spine 2-3V IMPRESSION: Unremarkable examination.
--- NOTE | ~2022-02-03 | XR_ITS ---
EXAMINATION: XR CHEST CLINICAL INFORMATION: R09.89 - Other specified symptoms and signs involving the circulatory and respiratory system COMPARISON: Chest radiographs 03/26/2021, 12/31/2020 TECHNIQUE: 2 views of the chest were obtained. FINDINGS: Lungs are clear. No hyperinflation. No consolidation or groundglass opacity. The costophrenic sulci are clear. The heart is normal in size. The vascularity is normal. The hilar and mediastinal contours and visualized bony structures are unremarkable. XR/XR chest 2V IMPRESSION: Normal chest.
[2022-02-03 08:21] LABS: MANUAL DIFF FLAG NO
--- NOTE | 2022-02-03 08:23 | ECG_ITS ---
Test Reason : e66.9 Blood Pressure : / mmHG Vent. Rate : 084 BPM Atrial Rate : 084 BPM P-R Int : 188 ms QRS Dur : 096 ms QT Int : 368 ms P-R-T Axes : 038 020 020 degrees QTc Int : 434 ms Normal sinus rhythm Normal ECG When compared with ECG of 26-MAR-2021 18:08, No significant change was found Referred By: Greg Castillo Electronically Signed By:JENNIFER GUERRERO MD
[2022-02-03 08:35] LABS: Basophils Absolute Auto 0.1 X10*3/uL (0.0-0.2); Basophils Percent Auto 0.7 % (0-2); Eosinophils Absolute Auto 0.2 X10*3/uL (0.0-0.4); Eosinophils Percent Auto 2.6 % (0-4); Hematocrit 43.4 % (42.0-52.0); Hemoglobin 14.7 g/dl (14.0-18.0); Imm Gran Abs Auto 0.08 X10*3/uL (0.00-0.03); Imm Gran Pct Auto 0.9 % (0.0-0.4); Lymphocytes Absolute Auto 2.9 X10*3/uL (1.2-4.9); Mean Corpuscular HGB Conc 33.9 g/dl (31.0-36.0); Mean Corpuscular Hemoglobin 29.2 pg (27.0-33.0); Mean Corpuscular Volume 86.1 fL (80.0-98.0); Monocytes Absolute Auto 0.5 X10*3/uL (0.1-1.2); Monocytes Percent Auto 5.8 % (2-11); Neutrophils Absolute Auto 5.3 x10*3/uL (2.0-8.3); Platelet Count 233 X10*3/uL (160-400); Red Blood Count 5.04 X10*6/uL (4.60-5.80); Red Cell Distribution Width 11.9 % (11.0-16.0); White Blood Count 9.1 X10*3/uL (4.8-10.8)
[2022-02-03 08:51] LABS: Estimated Average Glucose 226 mg/dL; Hemoglobin A1c % 9.5 %
[2022-02-03 08:53] LABS: Appearance Urine Cloudy; Color Urine Yellow; Glucose Urine UA 250 mg/dL (Negative); Leukocyte Esterase Urine Negative (Negative); Nitrite Urine Negative (Negative); Specific Gravity - Urine 1.025 (1.005-1.025); Urine Blood Negative (Negative); Urine Ketones Negative (Negative); Urine Protein Negative (Neg-Trace)
[2022-02-03 09:02] LABS: Alanine Aminotransferase 58 U/L (0-40); Albumin Level 4.4 g/dL (3.5-5.0); Alkaline Phosphatase 74 U/L (39-117); Anion Gap 15 (12-20); Aspartate Amino Transferase 24 U/L (5-37); Bilirubin Total 0.5 mg/dL (0.0-1.0); Blood Urea Nitrogen 15 mg/dL (9-16); C Reactive Protein 0.49 mg/dL (< or = 0.50); Calcium 9.7 mg/dL (8.4-10.2); Carbon Dioxide 24 mmol/L (22-29); Chloride 104 mmol/L (96-108); Cholesterol 131 mg/dL; Estimated Glomerular Filt Rate > 60; Glucose Fasting 251 mg/dL (60-99); HDL Cholesterol 33 mg/dL; Iron 110 mcg/dL (45-160); LDL Cholesterol Calculated 69 mg/dl; Magnesium 1.9 mg/dL (1.6-2.6); Percent Iron Saturation 31 % (15-50); Potassium 4.4 mmol/L (3.3-5.1); Sodium 139 mmol/L (135-145); Total Iron Binding Capacity 354 mcg/dL (228-428); Total Protein 7.8 g/dL (6.5-8.0); Triglycerides 147 mg/dL; Unsaturated Iron Binding 244 ug/dL
[2022-02-03 09:25] LABS: TSH reflex Free T4 1.28 uIU/mL (0.32-4.0); Vitamin D 25-OH Total 28.9 ng/mL (>30)
[2022-02-03 09:28] LABS: Ferritin 472 ng/mL (20-250)
[2022-02-03 09:48] LABS: Folate 15.8 ng/mL (> or = 4.0); Vitamin B12 546 pg/mL (200-900)
[2022-02-03 09:51] LABS: Creatinine Urine 189.66 mg/dL; Microalbum/Creatinine Ratio Ur 6.8 ug/mg cr
[2022-02-03 10:31] LABS: Insulin 22 uU/mL (2-29)
[2022-02-04 11:42] LABS: Calcium (PTHI) 9.5 mg/dL (8.6-10.3); PTHI 30 pg/mL (16-77)
[2022-02-05 12:17] LABS: H Pylori Breath Test Negative (Negative)
[2022-02-06 06:46] LABS: Zinc 80 mcg/dL (60-130)
[2022-02-07 13:32] LABS: Vitamin B1 11 nmol/L (8-30)
[2022-02-07 18:32] LABS: Vitamin A 42 mcg/dL (38-98)
== END 2022-02-03 08:03 | disposition home or self-care (01) ==
LOC: HO.XRAY 08:02
PROVIDERS: PCP Internal Medicine; Visit Provider Physician Assistant Surgical
DX: R30.0 Dysuria (principal); M54.50 Low back pain, unspecified; R09.89 Other specified symptoms and signs involving the circulatory and respiratory systems; E11.9 Type 2 diabetes mellitus without complications; I10 Essential (primary) hypertension; E78.00 Pure hypercholesterolemia, unspecified; E55.9 Vitamin D deficiency, unspecified; E66.9 Obesity, unspecified
CPT/HCPCS: 36415; 71046; 72100; 80053; 80061; 81003; 82043; 82306; 82607; 82728; 82746; 83013; 83036; 83525; 83540; 83735; 83970; 84425; 84443; 84590; 84630; 85025; 86140; 93005; 99211

== ENCOUNTER 2022-02-18 09:41 | Outpatient (REF) | payer OTHER, SELFPAY ==
--- NOTE | ~2022-02-18 | FL_ITS ---
EXAMINATION: XR FLUOROSCOPY UPPER GI WITH AIR CLINICAL INFORMATION: Obesity COMPARISON: None TECHNIQUE: Upper GI was performed using thin and thick barium and effervescent granules. FINDINGS: Esophageal motility is normal. No significant hernia or reflux is seen. The stomach and duodenum are normal. No fold thickening, mass, ulcer or stricture. FLUOROSCOPY TIME: 0.4 minutes DOSE AREA PRODUCT: 7 prater per centimeter squared. 19 saved fluoroscopic images. FL/FL upper GI w air IMPRESSION: Unremarkable examination.
== END 2022-02-18 09:42 | disposition home or self-care (01) ==
LOC: HO.XRAY 09:41
PROVIDERS: PCP Internal Medicine; Visit Provider Physician Assistant Surgical
DX: E66.9 Obesity, unspecified (principal)
CPT/HCPCS: 74246

== ENCOUNTER → 2022-02-19 15:19 | Outpatient (BNVA) | payer OTHER, SELFPAY | PROVIDERS: PCP Internal Medicine; Visit Provider Internal Medicine Endocrinology, Diabetes & Metabolism | DX: E11.65 Type 2 diabetes mellitus with hyperglycemia (principal); Z79.84 Long term (current) use of oral hypoglycemic drugs | CPT/HCPCS: 82947; 99202 ==

== ENCOUNTER → 2022-02-20 13:00 | Outpatient (BNVA) | payer OTHER, SELFPAY | PROVIDERS: PCP Internal Medicine; Referring Provider Physician Assistant Surgical; Visit Provider Counselor Mental Health | DX: F41.1 Generalized anxiety disorder (principal); E66.9 Obesity, unspecified | CPT/HCPCS: 90791 ==

== ENCOUNTER → 2022-02-26 08:51 | Outpatient (BNVA) | payer OTHER, SELFPAY | PROVIDERS: PCP Internal Medicine; Visit Provider Dietitian, Registered | DX: E66.9 Obesity, unspecified (principal); E11.9 Type 2 diabetes mellitus without complications; Z71.3 Dietary counseling and surveillance | CPT/HCPCS: 97802 ==

== ENCOUNTER 2022-03-07 08:56 | Outpatient (REF) | payer OTHER, SELFPAY ==
[2022-03-13 17:33] LABS: Glutamic acid decarboxylase Ab <5 IU/mL (<5)
== END 2022-03-07 08:57 | disposition home or self-care (01) ==
LOC: HO.LAB 08:56
PROVIDERS: PCP Internal Medicine; Visit Provider Internal Medicine Endocrinology, Diabetes & Metabolism
DX: E11.65 Type 2 diabetes mellitus with hyperglycemia (principal)
CPT/HCPCS: 36415; 86341; 99211

== ENCOUNTER 2022-03-12 14:34 | Outpatient (REF) | payer OTHER, SELFPAY ==
[2022-03-12 15:22] LABS: Influenza A PCR NEGATIVE (Negative); Influenza B PCR NEGATIVE (Negative); Resp Syncy Virus RNA Qual PCR POSITIVE (Negative); SARS COV2 PCR INHOUSE NEGATIVE (Negative)
== END 2022-03-12 14:35 | disposition home or self-care (01) ==
LOC: HO.LNP 14:34
PROVIDERS: Visit Provider Nurse Practitioner Family
DX: Z20.822 Contact with and (suspected) exposure to COVID-19 (principal); R09.89 Other specified symptoms and signs involving the circulatory and respiratory systems
CPT/HCPCS: 0241U

== ENCOUNTER → 2022-03-27 11:30 | Outpatient (BNVA) | payer OTHER, SELFPAY | PROVIDERS: PCP Internal Medicine; Visit Provider Counselor Mental Health | DX: F41.1 Generalized anxiety disorder (principal); E66.9 Obesity, unspecified | CPT/HCPCS: 90834 ==

== ENCOUNTER → 2022-04-04 15:30 | Outpatient (BNVA) | payer OTHER, SELFPAY | PROVIDERS: Visit Provider Registered Nurse Diabetes Educator | DX: E11.65 Type 2 diabetes mellitus with hyperglycemia (principal) | CPT/HCPCS: 99211 ==

== ENCOUNTER → 2022-06-19 15:04 | Outpatient (BNVA) | payer OTHER, SELFPAY | PROVIDERS: PCP Internal Medicine; Visit Provider Internal Medicine Endocrinology, Diabetes & Metabolism | DX: E11.65 Type 2 diabetes mellitus with hyperglycemia (principal); Z79.84 Long term (current) use of oral hypoglycemic drugs | CPT/HCPCS: 82947; 83036; 99212 ==

== ENCOUNTER 2022-11-14 14:05 | Outpatient (AMB) | payer OTHER, SELFPAY ==
--- NOTE | 2022-11-14 15:10 | MHC.AMDMED ---
Intake Intake Visit Reasons: dm Allergies dexamethasone Allergy (Mild, Verified 06/25/22 11:49) Hives HPI Comprehensive Diabetes Asmnt Most Recent Diabetes Results: No Data to Display [facility] Medical History (Updated 06/25/22 @ 11:52 by Mitra Betts, [facility]) Anxiety Depression Diabetes mellitus Headache Hypertension Left lumbosacral radiculopathy Low back pain radiating to left lower extremity Low back pain with sciatica Lumbar degenerative disc disease Mixed hyperlipidemia Non-insulin dependent diabetes mellitus Obesity (BMI 30-39.9) Obstructive sleep apnea Sleep apnea Type 2 diabetes mellitus with hyperglycemia Type 2 diabetes mellitus without complications Surgical History S/P lumbar microdiscectomy (~02/14/21) Family History Mother No problems noted. Father No problems noted. Daughter Menstrual abnormality Mental health problem Daughter Asthma Social History Housing: Apartment Alcohol intake: current Alcohol intake frequency: holidays/special occasions only Patient Tobacco Use Status: Never used Tobacco e-Cigarette/Vaping Use: Never Used Second Hand Smoke Exposure: No service: No Current occupational status: unemployed Cognitive needs: No Hearing needs: No Vision needs: No Assessment & Plan Assessment & Plan (1) Diabetes mellitus: Code(s): E11.9 - Type 2 diabetes mellitus without complications Qualifiers: Diabetes mellitus type: type 2 Diabetes mellitus group home insulin use: without group home use Diabetes mellitus complication status: with hyperglycemia Qualified Code(s): E11.65 - Type 2 diabetes mellitus with hyperglycemia Plan: To Patient at visit to set up Sample Satya 3 Patient reports that he has not been testing glucose, patient does have existing prescription for Satya 3 sensors but insurance recently changed. Recommended to patient he contact pharmacy with new insurance information and then ask fill Satya 3 prescription Patient also reports his sister recently and his 17-year-old nephew is now living with his family. He is also working many overtime hours Discussed with patient the effects that stress can have on glucose levels Patient reports most of the day he eats Zoneperfect bars, approximately every 2 hours each bar has 24 g of carbohydrate. Been most meals consist of protein patient reports he has reduced carbohydrate portions significantly Instructed patient sensors water proof you can shower, or swim do not submerge sensor in water for over 30 minutes Is sensor falls off cannot put back in you need to replace sensor, customer service number given to patient for sensor replacement Sensor placed on the back of left arm Patient left visit with sensor in warmup Reviewed how to interpret trend arrows Reminded patient that to check finger sticks if symptoms do not match sensor reading. Discussed lag time between finger stick and sensor data.? Instructed patient she should always keep blood glucometer for backup testing if needed Reviewed delay of CGM from fingersticks Reminded pt that if symptoms do not match sensor still needs to check fingersticks. Patient is interested in switching from Trulicity 3 mg to Mounjaro, recommended patient discuss medication change at pay upcoming on 12/05/2022 Patient Instructions: Patient instruction: CGM provides information on blood glucose control throughout the day, including hyperglycemia and hypoglycemia. ? Continue to monitor blood glucose as instructed. Follow nutrition guidelines provided. Report any discomfort promptly to health care provider. ?Stay well-hydrated. You can bathe ,shower, swim and exercise while wearing the glucose sensor. Do not submerge glucose sensor in water for more than 30 minutes. Coding Level of Care Code Est Pt Level 1 (28558) Diagnoses Diabetes mellitus E11.65 Diabetes mellitus type: type 2 Diabetes mellitus intermission coordinator insulin use: without intermission coordinator use Diabetes mellitus complication status: with hyperglycemia
== END 2022-11-14 16:08 | disposition home or self-care (01) ==
PROVIDERS: PCP Internal Medicine; Visit Provider Registered Nurse Diabetes Educator
DX: E11.65 Type 2 diabetes mellitus with hyperglycemia (principal)

== ENCOUNTER → 2022-11-14 14:05 | Outpatient (BNVA) | payer OTHER, MEDICAID, SELFPAY | PROVIDERS: Visit Provider Registered Nurse Diabetes Educator | DX: E11.65 Type 2 diabetes mellitus with hyperglycemia (principal) | CPT/HCPCS: 99211 ==

== ENCOUNTER → 2022-11-25 09:45 | Outpatient (BNVA) | payer SELFPAY | PROVIDERS: PCP Internal Medicine; Visit Provider Internal Medicine | DX: Z02.79 Encounter for issue of other medical certificate (principal) ==

== ENCOUNTER 2022-12-05 13:04 | Outpatient (AMB) | payer OTHER, SELFPAY ==
--- NOTE | 2022-12-05 13:24 | MHC.OFFVIS ---
Intake Vital Signs 12/05/22 13:25 Height 5 ft 9 in Weight 236 lb 12.423 oz BMI 35.0 BP 130/92 H Blood Pressure Location Lt brachial Position Sitting Pulse 102 H Pulse Source Pulse Oximeter Intake Visit Reasons: DM/confirmed Intake Note: Patient presents today to follow up on Type Diabetes Mellitus. Patient receives DME supplies through: Last Diabetic Eye exam: Never had one Last Podiatry Visit: None Random Glucose: 261mg/dl HgA1C:7.9% Bolt Loader Required: No Accompanied by: Self / Same As Patient Allergies dexamethasone Allergy (Mild, Verified 12/05/22 13:28) Hives Medication List - Last Reconciled 12/05/22 by Kristian Aly MD acetaminophen (Tylenol Extra Strength) 500 mg PO Q6H PRN albuterol sulfate 90 mcg/actuation (Ventolin HFA) 1 inh inhalation QID PRN [B12 250 mcg PO] blood sugar diagnostic (FreeStyle Lite Strips) As directed- 3 times a day blood-glucose meter (FreeStyle Lite Meter kit) As directed- 3 times a day blood-glucose sensor (FreeStyle Satya 3 Sensor device) As directed change every 14 days cephalexin 500 mg PO BID 5 days cholecalciferol (vitamin D3) 125 mcg PO DAILY dextromethorphan-guaifenesin 5-100 mg/5 mL (Robitussin Cough-Chest Congestion DM) 10 mL PO Q6-8H PRN dulaglutide (Trulicity) 3 mg (0.5 mL) subcut QWEEK guaifenesin ER 1,200 mg PO BID PRN lancets (FreeStyle Lancets) As directed- 3 times a day metformin 1,000 mg PO BID HPI HPI Comments History of Present Illness Details 37 YO M who is seen in consultation for T2DM at the request of PCP. Initially diagnosed with T2DM in metformin 500 mg BID. Dxed 4 yrs ago Was initially started on treatment with metformin 500 mg BID . Current regimen metformin. Trulicity 3 mg Qwkly metformnin 1000 mg BID Satya download shows he is using the sensor 78% of the time. Average glucose is 257 with G mi of 9.5% and variability of 21.2% 7% glucoses range with 93% hyperglycemia and no hypoglycemia pattern shows elevations in point cares throughout the day with elevations post lunch and post dinner Most recent A1C [], [down] from prior [] on []. Family history of T2DM in uncles and grandfather have Type 2 DM . Has eyes checked yearly, last eye exam yrs ago , denies retinopathy. Denies neuropathy, not , sees podiatry. Denies nephropathy, Not on MARQUIS/ARB. . Not Has HLD, Not on [statin]. Denies CAD. Not Had diabetes education. [facility] Medical History (Updated 06/25/22 @ 11:52 by Mitra Betts, [facility]) Anxiety Depression Diabetes mellitus Headache Hypertension Left lumbosacral radiculopathy Low back pain radiating to left lower extremity Low back pain with sciatica Lumbar degenerative disc disease Mixed hyperlipidemia Non-insulin dependent diabetes mellitus Obesity (BMI 30-39.9) Obstructive sleep apnea Sleep apnea Type 2 diabetes mellitus with hyperglycemia Type 2 diabetes mellitus without complications Surgical History S/P lumbar microdiscectomy (~02/14/21) Family History Mother No problems noted. Father No problems noted. Daughter Menstrual abnormality Mental health problem Daughter Asthma Social History Housing: Apartment Alcohol intake: current Alcohol intake frequency: holidays/special occasions only Patient Tobacco Use Status: Never used Tobacco e-Cigarette/Vaping Use: Never Used Second Hand Smoke Exposure: No service: No Current occupational status: unemployed Cognitive needs: No Hearing needs: No Vision needs: No Physical Exam Vital Signs: BMI result Body Mass Index 35.0 Absence of Cushingoid features. Absence of acromegalic features. Neck exam reveals nl size thyroid about 15 gms. No thyroid nodules palpable. No carotid bruits present. Lungs CTA. Heart S1 S2, Reg R/R. No M/R/ G. Skin exam reveals absence of vitiligo or acanthosis nigricans. Abdominal exam reveals Soft NT/ND with NA BS. No organomegaly present. Neck Other: . Extrem Other: Visual exam of foot performed. No ulcerations or open lesions. No onchomycosis, no callouses.Pulses 2 + distally Sensation intact to monofilament exam. Vibratory sensation sensed is intact with 128 Hz tuning fork Results AMB Hemoglobin A1c AMB Hemoglobin A1c 7.9 % Last Edit by Alexandra Peterson on 12/05/22 13:50 Assessment & Plan Assessment & Plan (1) Diabetes mellitus: Code(s): E11.9 - Type 2 diabetes mellitus without complications Qualifiers: Diabetes mellitus type: type 2 Diabetes mellitus retirement insulin use: without ocean transportation intermediary use Diabetes mellitus complication status: with hyperglycemia Qualified Code(s): E11.65 - Type 2 diabetes mellitus with hyperglycemia Plan: This is a 37-year-old male with a history of type 2 diabetes being treated with metformin and Trulcity with poor glycemic control and no known microvascular or macrovascular complication. Plan is talk to the patient about starting basal-bolus insulin using about 25 units of Lantus and to resume regular use of the Trulicity. I will have him follow-up with the ems educator. Insulin menstruations was taught by our nurse today. Could consider use of an SGLT 2 inhibitor in the future Orders: Orders AMB Hemoglobin A1c Today E11.9 - Type 2 diabetes mellitus without complications Medications: New insulin glargine (Lantus Solostar U-100 Insulin) 25 units (0.25 mL) subcut DAILY 30 mL 4RF pen needle, diabetic (Comfort EZ Pen [place]) As directed injects once a day 50 ea 5RF Refilled blood-glucose sensor (FreeStyle Satya 3 Sensor device) As directed change every 14 days 2 ea 5RF Coding Level of Care Code Est Pt Level 4 (35708) Diagnoses Diabetes mellitus E11.65 Diabetes mellitus type: type 2 Diabetes mellitus ocean transportation intermediary insulin use: without retirement use Diabetes mellitus complication status: with hyperglycemia
[2022-12-05 13:25] VITALS: BP 130/92; PULSE 102; BMI 35.0
[2022-12-05 13:42] LABS: Glucose, Whole Blood 261 mg/dL (60-115)
--- NOTE | 2022-12-05 14:05 | AM.OFFVISNUR ---
Intake Vital Signs 12/05/22 13:25 Height 5 ft 9 in Weight 236 lb 12.423 oz BMI 35.0 BP 130/92 H Blood Pressure Location Lt brachial Position Sitting Pulse 102 H Pulse Source Pulse Oximeter Intake Visit Reasons: DM/confirmed Allergies dexamethasone Allergy (Mild, Verified 12/05/22 13:28) Hives Medication List - Last Reconciled 12/05/22 by Kristian Aly MD acetaminophen (Tylenol Extra Strength) 500 mg PO Q6H PRN albuterol sulfate 90 mcg/actuation (Ventolin HFA) 1 inh inhalation QID PRN [B12 250 mcg PO] blood sugar diagnostic (FreeStyle Lite Strips) As directed- 3 times a day blood-glucose meter (FreeStyle Lite Meter kit) As directed- 3 times a day blood-glucose sensor (FreeStyle Satya 3 Sensor device) As directed change every 14 days cephalexin 500 mg PO BID 5 days cholecalciferol (vitamin D3) 125 mcg PO DAILY dextromethorphan-guaifenesin 5-100 mg/5 mL (Robitussin Cough-Chest Congestion DM) 10 mL PO Q6-8H PRN dulaglutide (Trulicity) 3 mg (0.5 mL) subcut QWEEK guaifenesin ER 1,200 mg PO BID PRN lancets (FreeStyle Lancets) As directed- 3 times a day metformin 1,000 mg PO BID Nursing Note Provided patient with 2 samples of Satya 3 sensors and 2 SkinTac wipes. We discussed how to apply the skin tac and how to remove it from the skin. We also went over how to use a Lantus pen. Patient verbalized how to properly dispose of sharps and cleanse the skin prior to injections. He will follow up with Ingrid in a couple weeks and has agreed to call me with any questions in the meantime. Results AMB Hemoglobin A1c AMB Hemoglobin A1c 7.9 % Last Edit by Alexandra Peterson on 12/05/22 13:50 Coding Diagnoses Diabetes mellitus E11.65 Diabetes mellitus type: type 2 Diabetes mellitus buttermaker helper insulin use: without group home use Diabetes mellitus complication status: with hyperglycemia Assessment & Plan Assessment & Plan (1) Diabetes mellitus: Code(s): E11.9 - Type 2 diabetes mellitus without complications Qualifiers: Diabetes mellitus type: type 2 Diabetes mellitus group home insulin use: without buttermaker helper use Diabetes mellitus complication status: with hyperglycemia Qualified Code(s): E11.65 - Type 2 diabetes mellitus with hyperglycemia Orders: Orders AMB Hemoglobin A1c Today E11.9 - Type 2 diabetes mellitus without complications Medications: New insulin glargine (Lantus Solostar U-100 Insulin) 25 units (0.25 mL) subcut DAILY 30 mL 4RF pen needle, diabetic (Comfort EZ Pen [place]) As directed injects once a day 50 ea 5RF Refilled blood-glucose sensor (FreeStyle Satya 3 Sensor device) As directed change every 14 days 2 ea 5RF
== END 2022-12-05 14:39 | disposition home or self-care (01) ==
PROVIDERS: PCP Internal Medicine; Visit Provider Internal Medicine Endocrinology, Diabetes & Metabolism
DX: E11.9 Type 2 diabetes mellitus without complications (principal); E11.65 Type 2 diabetes mellitus with hyperglycemia
CPT/HCPCS: 99214

== ENCOUNTER → 2022-12-05 13:04 | Outpatient (BNVA) | payer OTHER, SELFPAY | PROVIDERS: PCP Internal Medicine; Visit Provider Internal Medicine Endocrinology, Diabetes & Metabolism | DX: E11.65 Type 2 diabetes mellitus with hyperglycemia (principal); Z79.84 Long term (current) use of oral hypoglycemic drugs | CPT/HCPCS: 82947; 83036 ==

== ENCOUNTER → 2023-10-26 08:28 | Outpatient (BNVA) | payer SELFPAY | PROVIDERS: PCP Internal Medicine; Visit Provider Physician Assistant Medical | DX: Z02.79 Encounter for issue of other medical certificate (principal) ==

== ENCOUNTER 2023-11-20 08:01 | Outpatient (REF) | payer OTHER, SELFPAY ==
[2023-11-20 10:01] LABS: Creatinine Urine 158.45 mg/dL; Microalbum/Creatinine Ratio Ur 19.5 ug/mg cr (<30)
[2023-11-20 10:08] LABS: Alanine Aminotransferase 31 U/L (0-40); Albumin Level 4.5 g/dL (3.5-5.0); Alkaline Phosphatase 74 U/L (39-117); Anion Gap 12 (12-20); Aspartate Amino Transferase 20 U/L (5-37); Bilirubin Total 0.6 mg/dL (0.0-1.0); Blood Urea Nitrogen 12 mg/dL (9-16); Carbon Dioxide 28 mmol/L (22-29); Chloride 104 mmol/L (96-108); Cholesterol 130 mg/dL (<200); Estimated Glomerular Filt Rate > 60; Glucose Fasting 214 mg/dL (60-99); HDL Cholesterol 38 mg/dL (>40); LDL Cholesterol Calculated 71 mg/dL (<100); Potassium 4.2 mmol/L (3.3-5.1); Sodium 140 mmol/L (135-145); Total Protein 7.9 g/dL (6.5-8.0); Triglycerides 108 mg/dL (<150)
== END 2023-11-20 08:02 | disposition home or self-care (01) ==
LOC: HO.LAB 08:01
PROVIDERS: PCP Internal Medicine; Visit Provider Physician Assistant
DX: E11.65 Type 2 diabetes mellitus with hyperglycemia (principal); E66.9 Obesity, unspecified
CPT/HCPCS: 36415; 80053; 80061; 82043; 82570; 82947; 83036

== ENCOUNTER 2023-11-20 08:01 | Outpatient (AMB) | payer OTHER, SELFPAY ==
--- NOTE | 2023-11-20 08:05 | MHC.OFFVIS ---
Vital Signs 11/20/23 08:06 Height 5 ft 9 in Weight 246 lb 11.156 oz BMI 36.4 BP 126/84 Blood Pressure Location Lt brachial Position Sitting Pulse 89 Pulse Source Pulse Oximeter Intake Visit Reasons: T2DM/LVM Intake Note: Patient presents today for D2MT follow up visit. 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 Accompanied by: Self / Same As Patient Allergies dexamethasone Allergy (Mild, Verified 11/20/23 08:14) Hives Medication List - Last Reconciled 11/20/23 by Samantha Day PA-C acetaminophen (Tylenol Extra Strength) 500 mg PO Q6H PRN albuterol sulfate 90 mcg/actuation (Ventolin HFA) 1 inh inhalation QID PRN [B12 250 mcg PO] blood sugar diagnostic (FreeStyle Lite Strips) As directed- 3 times a day blood-glucose meter (FreeStyle Lite Meter kit) As directed- 3 times a day blood-glucose sensor (FreeStyle Satya 3 Sensor device) As directed change every 14 days cholecalciferol (vitamin D3) 125 mcg PO DAILY guaifenesin ER 1,200 mg PO BID PRN lancets (FreeStyle Lancets) As directed- 3 times a day metformin 1,000 mg PO BID pen needle, diabetic (Comfort EZ Pen [place]) As directed injects once a day HPI HPI T2DM/LVM: Details: Patient is a 38-year-old male with a significant past medical history of type 2 diabetes, anxiety, obesity, JULIA on CPAP presenting today for a follow-up regarding his diabetes. He last saw Dr. Aly 12/2022 endo: DM-A1c today is 9.7. he was supposed to be taking Lantus 25 units, metformin 1000 mg twice a day, Trulicity 3 mg weekly but due to insurance issues has not been on these medications for a few months. 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 He has been monitoring his blood sugars with a glucometer. He states that his numbers are somewhere between 141-300. He states he does depending on what he eats and he does at try to check at least once a day. He did very well with the mood Trulicity in terms of suppression of appetite in controlling his blood sugars when he had this added to his metformin and with the Lantus but he did notice at times he was getting nauseous with the Trulicity. He did feel that the Lantus was helpful in lowering his high sugars but he does not necessarily want to take this if he does not have to. 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 CGM- No data hyperglycemia- he does get increased thirst but otherwise no symptoms hypoglycemia- denies complications- denies. He did have an eye exam which was negative for any retinopathy. Overdue for labs. He has had diabetic Education. He was diagnosed Seven years ago. He has a family history of type 2 diabetes. -He is not on acei or statin CV: Bp today in office is 126/84. He does not know his last LDL. states his cholesterol has been diet controlled. His blood pressures have fluctuated but when he started CPAP they return to a normal range. [facility] Medical History (Updated 11/20/23 @ 08:43 by Samantha Day PA-C) Lumbar degenerative disc disease Mixed hyperlipidemia Obstructive sleep apnea Sleep apnea Hypertension Non-insulin dependent diabetes mellitus Anxiety Low back pain radiating to left lower extremity Obesity (BMI 30-39.9) Headache Type 2 diabetes mellitus with hyperglycemia Left lumbosacral radiculopathy Depression Type 2 diabetes mellitus without complications Low back pain with sciatica Surgical History S/P lumbar microdiscectomy (~02/14/21) Family History Mother No problems noted. Father No problems noted. Daughter Menstrual abnormality Mental health problem Daughter Asthma Social History Housing: Apartment Alcohol intake: current Alcohol intake frequency: holidays/special occasions only Patient Tobacco Use Status: Never used Tobacco e-Cigarette/Vaping Use: Never Used Second Hand Smoke Exposure: No service: No Current occupational status: unemployed Cognitive needs: No Hearing needs: No Vision needs: No Physical Exam Vital Signs: Last Vital Signs Pulse 89 11/20/23 08:06 BP 126/84 11/20/23 08:06 BMI result Body Mass Index 36.4 Const Orientation/consciousness: patient oriented x3 Neck Neck: Yes no lymphadenopathy Thyroid: Thyroid normal Carotids: no bruits Resp Auscultation: clear to auscultation bilaterally Cardio Rate: regular rate Rhythm: regular rhythm Heart sounds: S1 normal heart sound present and S2 normal heart sound present Peripheral pulses: dorsalis pedis present Neuro General: patient oriented x3, gait normal and no focal motor deficits Extrem Other: Monofilament sensation intact bilaterally. Vibratory sensation intact bilaterally. Skin intact. General: Yes normal to inspection Results AMB Hemoglobin A1c AMB Hemoglobin A1c 9.7 % Last Edit by HYACINTH Roberts on 11/20/23 08:33 Results Reviewed Results Reviewed: Laboratory Last Values Glucose (Clinic) 207 mg/dL (60-115) H 11/20/23 08:19 Hgb A1c (Clinic) 9.7 % (4.0-6.0) H 11/20/23 08:25 Laboratory Tests 02/03/22 12/05/22 08:13 13:41 Hgb A1c (Clinic) 7.9 H Urine Creatinine 189.66 Urine Microalbumin 13.0 Microalb/Creat Ratio 6.8 Assessment & Plan Assessment & Plan (1) Type 2 diabetes mellitus without complications: Code(s): E11.9 - Type 2 diabetes mellitus without complications Category: Medical Qualifiers: Diabetes mellitus residential insulin use: without continuous churn buttermaker use Qualified Code(s): E11.9 - Type 2 diabetes mellitus without complications Plan: will start ozempic. discussed risks and benefits and adverse effects like n/v, pancreatitis. He will start metformin again. refills provided today. (2) Type 2 diabetes mellitus with hyperglycemia: Code(s): E11.65 - Type 2 diabetes mellitus with hyperglycemia Category: Medical Qualifiers: Diabetes mellitus continuous churn buttermaker insulin use: without residential use Qualified Code(s): E11.65 - Type 2 diabetes mellitus with hyperglycemia Plan: as above diabetic labs ordered cgm reordered testing supplies ordered (3) Obesity (BMI 30-39.9): Code(s): E66.9 - Obesity, unspecified Category: Medical Plan: starting ozempic. advised low carb, reduce sugar intake, increase exercise. Orders: Orders Lipid Panel Today E11.65 - Type 2 diabetes mellitus with hyperglycemia, E11.9 - Type 2 diabetes mellitus without complications, E66.9 - Obesity, unspecified AMB Hemoglobin A1c Today E11.65 - Type 2 diabetes mellitus with hyperglycemia, Z13.9 - Encounter for screening, unspecified Comprehensive [place]. Panel Fast Today E11.65 - Type 2 diabetes mellitus with hyperglycemia, E11.9 - Type 2 diabetes mellitus without complications, E66.9 - Obesity, unspecified Microalbumin, Random (w Creat) Today E11.65 - Type 2 diabetes mellitus with hyperglycemia, E11.9 - Type 2 diabetes mellitus without complications, E66.9 - Obesity, unspecified Medications: New semaglutide (Ozempic) for 4 weeks; then increase to 0.5 mg every week 0.25 mg (0.368 mL) subcut QWEEK 3 mL 2RF Refilled metformin 1,000 mg PO BID 180 tabs 3RF blood-glucose sensor (FreeStyle Satya 3 Sensor device) As directed change every 14 days 2 ea 5RF lancets (FreeStyle Lancets) As directed- 3 times a day 100 ea 12RF E11.65 - Type 2 diabetes mellitus with hyperglycemia Coding Level of Care Code Est Pt Level 4 (72194) Complex EM visit Add On G2211 Diagnoses Type 2 diabetes mellitus without complication, without long-term current use of insulin E11.9 Diabetes mellitus residential insulin use: without residential use Type 2 diabetes mellitus with hyperglycemia, without long-term current use of insulin E11.65 Diabetes mellitus residential insulin use: without residential use Obesity (BMI 30-39.9) E66.9
[2023-11-20 08:06] VITALS: BP 126/84; PULSE 89; BMI 36.4
[2023-11-20 08:23] LABS: Glucose, Whole Blood 207 mg/dL (60-115)
== END 2023-11-20 08:51 | disposition home or self-care (01) ==
PROVIDERS: PCP Internal Medicine; Visit Provider Physician Assistant
DX: E11.9 Type 2 diabetes mellitus without complications (principal); E11.65 Type 2 diabetes mellitus with hyperglycemia; E66.9 Obesity, unspecified; Z13.9 Encounter for screening, unspecified
CPT/HCPCS: 99214; G2211

== ENCOUNTER 2023-12-25 08:30 | Outpatient (AMB) | payer OTHER, SELFPAY ==
--- NOTE | 2023-12-25 08:31 | A.OFFVIS_ITS ---
Vital Signs 12/25/23 08:34 Height 5 ft 9 in Weight 134 lb 7.712 oz BMI 19.9 BP 122/84 Blood Pressure Location Rt brachial Position Sitting Pulse 82 Pulse Source Pulse Oximeter Intake Visit Reasons: T2DM/CONFIRMED Intake Note: Patient presents today for D2MT follow up visit. Last Diabetic Eye exam: 11/2023 Last Podiatry Visit: Doesn't have one Most Recent HgA1c: 9.7%, 11/20/2023 Random Glucose: 166mg/dL, Today Collar Turner Required: No Accompanied by: Self / Same As Patient Allergies dexamethasone Allergy (Mild, Verified 12/25/23 08:33) Hives Medication List - Last Reconciled 12/25/23 by Samantha Day PA-C acetaminophen (Tylenol Extra Strength) 500 mg PO Q6H PRN albuterol sulfate 90 mcg/actuation (Ventolin HFA) 1 inh inhalation QID PRN [B12 250 mcg PO] blood sugar diagnostic (FreeStyle Lite Strips) As directed- 3 times a day blood-glucose meter (FreeStyle Lite Meter kit) As directed- 3 times a day blood-glucose sensor (FreeStyle Satya 3 Sensor device) As directed change every 14 days cholecalciferol (vitamin D3) 125 mcg PO DAILY guaifenesin ER 1,200 mg PO BID PRN lancets (FreeStyle Lancets) As directed- 3 times a day metformin 1,000 mg PO BID pen needle, diabetic (Comfort EZ Pen [place]) As directed injects once a day semaglutide (Ozempic) 1 mg (0.75 mL) subcut QWEEK HPI HPI T2DM/CONFIRMED: Details: Patient is a 38-year-old male with a significant past medical history of type 2 diabetes, anxiety, obesity, JULIA on CPAP presenting today for a follow-up regarding his diabetes. endo: DM-A1c today is 9.7. He is on metformin 1000 mg twice a day, ozempic 0.5 mg. Tolerating ozempic well. He has been working on diet and exercise. Checks blood sugars daily. States still elevated but better. He states when he eats poorly the glucose goes up to 250 for a bit. CGM- very high 4%, high 57%, in range 39%, 0 hypoglycemia hyperglycemia- he does get increased thirst but otherwise no symptoms hypoglycemia- denies complications- denies. He did have an eye exam which was negative for any retinopathy. Overdue for labs. He has had diabetic Education. He was diagnosed Seven years ago. He has a family history of type 2 diabetes. -He is not on acei or statin CV: Bp today in office is 122/84. He does not know his last LDL. states his cholesterol has been diet controlled. His blood pressures have fluctuated but when he started CPAP they return to a normal range. [facility] Medical History Lumbar degenerative disc disease Mixed hyperlipidemia Obstructive sleep apnea Sleep apnea Hypertension Non-insulin dependent diabetes mellitus Anxiety Low back pain radiating to left lower extremity Obesity (BMI 30-39.9) Headache Type 2 diabetes mellitus with hyperglycemia Left lumbosacral radiculopathy Depression Type 2 diabetes mellitus without complications Low back pain with sciatica Surgical History S/P lumbar microdiscectomy (~02/14/21) Family History Mother No problems noted. Father No problems noted. Daughter Menstrual abnormality Mental health problem Daughter Asthma Social History Housing: Apartment Alcohol intake: current Alcohol intake frequency: holidays/special occasions only Patient Tobacco Use Status: Never used Tobacco e-Cigarette/Vaping Use: Never Used Second Hand Smoke Exposure: No service: No Current occupational status: unemployed Cognitive needs: No Hearing needs: No Vision needs: No Physical Exam Vital Signs: BMI result Body Mass Index 19.9 Const Orientation/consciousness: patient oriented x3 Neck Neck: Yes no lymphadenopathy Thyroid: Thyroid normal Carotids: no bruits Resp Auscultation: clear to auscultation bilaterally Cardio Rate: regular rate Rhythm: regular rhythm Heart sounds: S1 normal heart sound present and S2 normal heart sound present Peripheral pulses: dorsalis pedis present Neuro General: patient oriented x3, gait normal and no focal motor deficits Extrem Other: Monofilament sensation intact bilaterally. Vibratory sensation intact bilaterally. Skin intact. General: Yes normal to inspection Results Reviewed Results Reviewed: Laboratory Tests 11/20/23 11/20/23 08:25 09:15 Sodium 140 Potassium 4.2 Chloride 104 Carbon Dioxide 28 Anion Gap 12 BUN 12 Creatinine 0.88 Estimated GFR > 60 Fasting Glucose 214 H Hgb A1c (Clinic) 9.7 H Calcium 10.0 Triglycerides 108 Cholesterol 130 LDL Cholesterol, Calc 71 HDL Cholesterol 38 L Assessment & Plan Assessment & Plan (1) Type 2 diabetes mellitus with hyperglycemia: Code(s): E11.65 - Type 2 diabetes mellitus with hyperglycemia Category: Medical Qualifiers: Diabetes mellitus nursing home insulin use: without director long term care use Qualified Code(s): E11.65 - Type 2 diabetes mellitus with hyperglycemia Plan: increase ozempic, continue metformin. labs ordered to be rechecked in 3 months prior to appointment Orders: Orders Hemoglobin A1c 3 Months E11.65 - Type 2 diabetes mellitus with hyperglycemia Comprehensive [place]. Panel Fast 3 Months E11.65 - Type 2 diabetes mellitus with hyperglycemia Medications: New semaglutide (Ozempic) 1 mg (0.75 mL) subcut QWEEK 3 mL 5RF Discontinued semaglutide (Ozempic) for 4 weeks; then increase to 0.5 mg every week Discontinued Reason: Doctor's Order 0.25 mg (0.368 mL) subcut QWEEK 3 mL 2RF Coding Level of Care Code Est Pt Level 4 (48627) Complex EM visit Add On G2211 Diagnoses Type 2 diabetes mellitus with hyperglycemia, without long-term current use of insulin E11.65 Diabetes mellitus nursing home insulin use: without nursing home use
[2023-12-25 08:34] VITALS: BP 122/84; PULSE 82; BMI 19.9
[2023-12-25 08:49] LABS: Glucose, Whole Blood 166 mg/dL (60-115)
== END 2023-12-25 09:07 | disposition home or self-care (01) ==
PROVIDERS: PCP Internal Medicine; Visit Provider Physician Assistant
DX: E11.65 Type 2 diabetes mellitus with hyperglycemia (principal)

== ENCOUNTER → 2023-12-25 08:30 | Outpatient (BNVA) | payer OTHER, SELFPAY | PROVIDERS: PCP Internal Medicine; Visit Provider Physician Assistant | DX: E11.65 Type 2 diabetes mellitus with hyperglycemia (principal); Z79.84 Long term (current) use of oral hypoglycemic drugs; Z79.85 Long-term (current) use of injectable non-insulin antidiabetic drugs | CPT/HCPCS: 82947 ==

== ENCOUNTER 2024-04-08 12:46 | Outpatient (AMB) | payer OTHER, SELFPAY ==
[2024-04-08 12:49] VITALS: BP 140/82; PULSE 97; BMI 36.1
--- NOTE | 2024-04-08 12:49 | A.OFFVIS_ITS ---
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 Accompanied by: Self / Same As Patient Allergies dexamethasone Allergy (Mild, Verified 04/08/24 12:58) Hives Medication List - Last Reconciled 04/08/24 by Samantha Day PA-C acetaminophen (Tylenol Extra Strength) 500 mg PO Q6H PRN albuterol sulfate 90 mcg/actuation (Ventolin HFA) 1 inh inhalation QID PRN [B12 250 mcg PO] blood sugar diagnostic (FreeStyle Lite Strips) As directed- 3 times a day blood-glucose meter (FreeStyle Lite Meter kit) As directed- 3 times a day blood-glucose sensor (FreeStyle Satya 3 Plus Sensor device) Use daily As directed to monitor glucose blood-glucose sensor (FreeStyle Satya 3 Sensor device) As directed change every 14 days cholecalciferol (vitamin D3) 125 mcg PO DAILY lancets (FreeStyle Lancets) As directed- 3 times a day metformin 1,000 mg PO BID pen needle, diabetic (Comfort EZ Pen [place]) As directed injects once a day HPI HPI T2DM/Left vm: Details: Patient is a 38-year-old male with a significant past medical history of type 2 diabetes, anxiety, obesity, JULIA on CPAP presenting today for a follow-up regarding his diabetes. endo: DM-A1c today is 8.8. He is on metformin 1000 mg twice a day, ozempic 1 mg weekly. Tolerating ozempic well. He has been working on diet and exercise. Checks blood sugars daily. States still elevated but better. hyperglycemia- he does get increased thirst but otherwise no symptoms hypoglycemia- denies complications- denies. He did have an eye exam which was negative for any retinopathy. Overdue for labs. He has had diabetic Education. He was diagnosed around 2016. He has a family history of type 2 diabetes. -He is not on acei or statin CV: Bp today in office is 140/82. He does not know his last LDL. states his cholesterol has been diet controlled. His blood pressures have fluctuated but when he started CPAP they return to a normal range. He thinks that his blood pressures are truly normal but it has been a little bit elevated today because he woke up this morning with flu-like symptoms. He states he feels achy in his had some sinus congestion. He took DayQuil and Motrin. His has a blood pressure cuff at home and he states he will have her check it. [facility] Medical History Lumbar degenerative disc disease Mixed hyperlipidemia Obstructive sleep apnea Sleep apnea Hypertension Non-insulin dependent diabetes mellitus Anxiety Low back pain radiating to left lower extremity Obesity (BMI 30-39.9) Headache Type 2 diabetes mellitus with hyperglycemia Left lumbosacral radiculopathy Depression Type 2 diabetes mellitus without complications Low back pain with sciatica Surgical History S/P lumbar microdiscectomy (~02/14/21) Family History Mother No problems noted. Father No problems noted. Daughter Menstrual abnormality Mental health problem Daughter Asthma Social History Housing: Apartment Alcohol intake: current Alcohol intake frequency: holidays/special occasions only Patient Tobacco Use Status: Never used Tobacco e-Cigarette/Vaping Use: Never Used Second Hand Smoke Exposure: No service: No Current occupational status: unemployed Cognitive needs: No Hearing needs: No Vision needs: No Physical Exam Vital Signs: Last Vital Signs Pulse 97 04/08/24 12:49 BP 140/82 H 04/08/24 12:49 BMI result Body Mass Index 36.1 Const Orientation/consciousness: patient oriented x3 HEENT Ears: hearing grossly normal bilaterally Neck Thyroid: Thyroid normal Lymphatic: no lymphadenopathy noted Resp Auscultation: clear to auscultation bilaterally Cardio Rate: regular rate Rhythm: regular rhythm Heart sounds: S1 normal heart sound present and S2 normal heart sound present Skin General skin exam: no rashes or lesions noted Neuro General: patient oriented x3, gait normal and no focal motor deficits Results AMB Hemoglobin A1c AMB Hemoglobin A1c 8.8 % Last Edit by HYACINTH An on 04/08/24 13:19 Results Reviewed Results Reviewed: Laboratory Last Values Glucose (Clinic) 126 mg/dL (60-115) H 04/08/24 13:03 Laboratory Tests 11/20/23 04/08/24 09:15 13:03 Sodium 140 Potassium 4.2 Chloride 104 Carbon Dioxide 28 Anion Gap 12 BUN 12 Creatinine 0.88 Estimated GFR > 60 Glucose (Clinic) 126 H Calcium 10.0 Total Bilirubin 0.6 AST 20 ALT 31 Triglycerides 108 Cholesterol 130 LDL Cholesterol, Calc 71 HDL Cholesterol 38 L Assessment & Plan Assessment & Plan (1) Type 2 diabetes mellitus with hyperglycemia: Code(s): E11.65 - Type 2 diabetes mellitus with hyperglycemia Category: Medical Qualifiers: Diabetes mellitus rn long term care insulin use: without rn long term care use Qualified Code(s): E11.65 - Type 2 diabetes mellitus with hyperglycemia Plan: increase ozempic to 2 mg weekly start jardiance 10 mg- discussed risks and benefits and adverse effects. - advised to check labs 10-14 days after starting medication continue metformin 1000 mg bid continue monitoring bs as directed (2) Mixed hyperlipidemia: Code(s): E78.2 - Mixed hyperlipidemia Category: Medical Plan: Continue with diet. We will check lipids. (3) Elevated blood pressure reading in office with white coat syndrome, without diagnosis of hypertension: Code(s): R03.0 - Elevated blood-pressure reading, without diagnosis of hypertension Category: Medical Plan: slightly elevated today. reports its due to having flu like sx. Orders: Orders AMB Hemoglobin A1c Today E11.65 - Type 2 diabetes mellitus with hyperglycemia Comprehensive Met. Panel Today E11.65 - Type 2 diabetes mellitus with hyperglycemia, E78.2 - Mixed hyperlipidemia, R03.0 - Elevated blood-pressure reading, without diagnosis of hypertension Microalbumin, Random (w Creat) Today E11.65 - Type 2 diabetes mellitus with hyperglycemia, E78.2 - Mixed hyperlipidemia, R03.0 - Elevated blood-pressure reading, without diagnosis of hypertension Lipid Panel Today E11.65 - Type 2 diabetes mellitus with hyperglycemia, E78.2 - Mixed hyperlipidemia, R03.0 - Elevated blood-pressure reading, without diagnosis of hypertension Hemoglobin A1c Today E11.65 - Type 2 diabetes mellitus with hyperglycemia, E78.2 - Mixed hyperlipidemia, R03.0 - Elevated blood-pressure reading, without diagnosis of hypertension, R73.01 - Impaired fasting glucose Medications: New semaglutide (Ozempic) 2 mg (0.75 mL) subcut QWEEK 3 mL 5RF empagliflozin (Jardiance) 10 mg PO QAM 90 tabs 0RF Patient Instructions: increase ozempic to 2 mg weekly start jardiance 10 mg- discussed risks and benefits and adverse effects (urinary sx, decreased kidney function, yeast infections). -come to check labs 10-14 days after starting medication continue metformin 1000 mg twice a day check blood pressure a few times to make sure it is normal return in 3 months or sooner as needed Coding Level of Care Code Est Pt Level 4 (89143) Complex EM visit Add On G2211 Diagnoses Type 2 diabetes mellitus with hyperglycemia, without long-term current use of insulin E11.65 Diabetes mellitus rn long term care insulin use: without snf use Mixed hyperlipidemia E78.2 Elevated blood pressure reading in office with white coat syndrome, without diagnosis of hypertension R03.0
[2024-04-08 13:13] LABS: Glucose, Whole Blood 126 mg/dL (60-115)
== END 2024-04-08 13:34 | disposition home or self-care (01) ==
PROVIDERS: PCP Internal Medicine; Visit Provider Physician Assistant
DX: E11.65 Type 2 diabetes mellitus with hyperglycemia (principal); E78.2 Mixed hyperlipidemia; R03.0 Elevated blood-pressure reading, without diagnosis of hypertension

== ENCOUNTER → 2024-04-08 12:46 | Outpatient (BNVA) | payer OTHER, SELFPAY | PROVIDERS: PCP Internal Medicine; Visit Provider Physician Assistant | DX: E11.65 Type 2 diabetes mellitus with hyperglycemia (principal); Z79.84 Long term (current) use of oral hypoglycemic drugs; E78.2 Mixed hyperlipidemia; R03.0 Elevated blood-pressure reading, without diagnosis of hypertension | CPT/HCPCS: 82947; 83036 ==

== ENCOUNTER 2024-05-05 08:55 | Outpatient (REF) | payer OTHER, SELFPAY ==
[2024-05-05 09:47] LABS: Estimated Average Glucose 157 mg/dL; Hemoglobin A1C 217.0043 umol/L; Hemoglobin A1c % 7.1 % (<6.0); Total Hemoglobin (HGBA1C) 4006.8832 umol/L
[2024-05-05 10:06] LABS: Alanine Aminotransferase 61 U/L (0-40); Albumin Level 4.6 g/dL (3.5-5.0); Alkaline Phosphatase 73 U/L (39-117); Anion Gap 10 (12-20); Aspartate Amino Transferase 34 U/L (5-37); Bilirubin Total 0.4 mg/dL (0.0-1.0); Blood Urea Nitrogen 17 mg/dL (9-16); Calcium 9.5 mg/dL (8.4-10.2); Carbon Dioxide 27 mmol/L (22-29); Chloride 111 mmol/L (96-108); Cholesterol 128 mg/dL (<200); Estimated Glomerular Filt Rate > 60; Glucose Random 125 mg/dL (60-115); HDL Cholesterol 36 mg/dL (>40); LDL Cholesterol Calculated 67 mg/dL (<100); Potassium 4.4 mmol/L (3.3-5.1); Sodium 144 mmol/L (135-145); Total Protein 8.5 g/dL (6.5-8.0); Triglycerides 129 mg/dL (<150)
[2024-05-05 11:22] LABS: Creatinine Urine 115.96 mg/dL; Microalbum/Creatinine Ratio Ur 7.7 ug/mg cr (<30)
--- OUTSIDE RECORDS SUMMARY | 2024-05-05 11:47 | XMS_ITS | Clinical Summary ---
Author Organization [facility] Address [address] [place] [address] Care Team Providers Care [employer] Name Role Phone Unavailable Primary Care Provider Unavailabl e Social History Tobacco Use Types Packs/Day Years Used Date Smoking Tobacco: Never Assessed Sex and Gender Information Value Date Recorded Sex Assigned at Not on file Gender Identity Not on file Sexual Orientation Not on file Plan of Treatment Health Maintenance Due Date Last Done Comments Hepatitis C Virus Screening 1986 HIV Screening 08/16/1999 DTaP/Tdap/Td Vaccines (1 - Tdap) 2005 Hepatitis B Vaccines (1 of 3 - 19+ 3-dose series) 2005 COVID-19 Vaccine (2023-2 5 season) 2023 HPV Vaccines Aged Out No longer eligi ble based on patient's age to complete this topic Pneumococcal Vaccine: Pediat wilma (0-5 Years) and At-Risk Patients (6 to 49 Years) Aged Out No longer eligible b ased on patient's age to complete this topic
== END 2024-05-05 08:56 | disposition home or self-care (01) ==
LOC: HO.LAB 08:55
PROVIDERS: Visit Provider Physician Assistant
DX: E11.65 Type 2 diabetes mellitus with hyperglycemia (principal); R03.0 Elevated blood-pressure reading, without diagnosis of hypertension; E78.2 Mixed hyperlipidemia
CPT/HCPCS: 36415; 80053; 80061; 82043; 82570; 83036

== ENCOUNTER 2024-07-13 13:49 | Outpatient (AMB) | payer OTHER, SELFPAY ==
[2024-07-13 13:50] VITALS: BP 124/80; PULSE 93; O2SAT 98; BMI 34.3
--- NOTE | 2024-07-13 13:50 | A.OFFPC_ITS ---
Vital Signs 07/13/24 13:50 Height 5 ft 9 in Weight 232 lb 2 oz BMI 34.3 BP 124/80 Blood Pressure Location Lt brachial Position Sitting Pulse 93 Pulse Source Pulse Oximeter Pulse Oximetry (%) 98 Oxygen Delivery Method Room Air Intake Visit Reasons: Annual PE Investment Consultant Required: No Accompanied by: Self / Same As Patient Allergies dexamethasone Allergy (Mild, Verified 07/13/24 14:31) Hives Medication List - Last Reconciled 07/13/24 by Quincy Chávze MD acetaminophen (Tylenol Extra Strength) 500 mg PO Q6H PRN albuterol sulfate 90 mcg/actuation (Ventolin HFA) 1 inh inhalation QID PRN [B12 250 mcg PO] blood sugar diagnostic (FreeStyle Lite Strips) As directed- 3 times a day blood-glucose meter (FreeStyle Lite Meter kit) As directed- 3 times a day blood-glucose sensor (FreeStyle Satya 3 Plus Sensor device) Use daily As directed to monitor glucose blood-glucose sensor (FreeStyle Satya 3 Sensor device) As directed change every 14 days cholecalciferol (vitamin D3) 125 mcg PO DAILY dulaglutide (Trulicity) 0.75 mg (0.5 mL) subcut QWEEK lancets (FreeStyle Lancets) As directed- 3 times a day metformin 1,000 mg PO BID pen needle, diabetic (Comfort EZ Pen [place]) As directed injects once a day Tobacco use date assessed: 07/13/24 Dental Screening Dental Screen Date: 07/13/24 Did you have a dental visit in the last 12 months?: Yes Did you have a dental problem in the last 6 months where you did not have access to dental care?: No Was dental information given to patient?: Patient has dentist HPI Annual PE HPI Details Patient comes in today for his annual physical examination - he was last seen here on 01/29/2022 Patient states that he feels okay and that he has been following up with endocrinology for his diabetes over the years even though he has not been back to see us in almost 3 years He denies any headaches or dizziness Denies any chest pains, no shortness of breath No nausea/vomiting, no abdominal pain No change in bowel habits noted He denies any acute urinary symptoms PFSH Medical History (Updated 07/17/24 @ 22:07 by Quincy Chávez MD) Vitamin D deficiency Diabetes mellitus Lumbar degenerative disc disease Mixed hyperlipidemia Obstructive sleep apnea Sleep apnea Hypertension Non-insulin dependent diabetes mellitus Anxiety Low back pain radiating to left lower extremity Obesity (BMI 30-39.9) Headache Type 2 diabetes mellitus with hyperglycemia Left lumbosacral radiculopathy Depression Type 2 diabetes mellitus without complications Low back pain with sciatica Surgical History S/P lumbar microdiscectomy (~02/14/21) Family History Mother No problems noted. Father No problems noted. Daughter Menstrual abnormality Mental health problem Daughter Asthma Social History Housing: Apartment Alcohol intake: current Alcohol intake frequency: holidays/special occasions only Patient Tobacco Use Status: Never used Tobacco e-Cigarette/Vaping Use: Never Used Second Hand Smoke Exposure: No service: No Current occupational status: unemployed Cognitive needs: No Hearing needs: No Vision needs: No Questionnaire PHQ-9 Over the last 2 weeks, how often have you been bothered by any of the following problems? 1. Little interest or pleasure in doing things: several days 2. Feeling down, depressed, or hopeless: more than half the days 3. Trouble falling or staying asleep, or sleeping too much: several days 4. Feeling tired or having little energy: nearly every day 5. Poor appetite or overeating: several days 6. Feeling bad about yourself - or that you are a failure or have let yourself or your family down: not at all 7. Trouble concentrating on things, such as reading the newspaper or watching television: not at all 8. Moving or speaking so slowly that other people could have noticed. Or the opp osite - being so fidgety or restless that you have been moving around a lot more than usual: not at all 9. Thoughts that you would be better off or of hurting yourself in some way: not at all Total score: 8 Depression Screening Interpretation: Positive Depression Screening Follow-up: Follow-up Visit Requested Depression Screening Done: Yes 55292 - PHQ-9 Billing: Yes Source: Developed by Drs. Kristian Mijares, Tracie Lozano, Jc Hayden and colleagues, with an educational bing from [employer]. Thrive Questionnaire Date Thrive assessed: 07/13/24 I am a: Patient What is your living situation today?: I have a steady place to live Within the past 12 months, did the food you bought not last and you didn't have the money to get more?: Never true Within the past 12 months, did you worry whether your food would run out before you got money to buy more?: Never true Do you have trouble paying for medicines?: No Do you have trouble getting transportation to medical appointments?: No Do you have trouble paying your heating and electricity bill?: No Do you have trouble taking care of your child, family member or friend?: No Do you have trouble with day-to-day activities such as bathing, preparing meals, shopping, managing finances, etc.?: No Are you currently unemployed and looking for a job?: No Are you interested in more education?: No Please select the resources that you would like help with: None Currently or been in a relationship where the following occur: No concerns reported THRIVE Score: 0 AUDIT C Alcohol Use Questionnaire (AUDIT-C) 1. How often do you have a drink containing alcohol?: Monthly or less 2. How many drinks containing alcohol do you have on a typical day when you are drinking?: 1 or 2 3. How often do you have six or more drinks on one occasion?: Never Total Score: 1 Score Reviewed/Action Taken: Yes JETHRO-7 AMB Questionnaire JETHRO-7 Date JETHRO - 7 assessed: 07/13/24 Feeling nervous, anxious, or on edge: 3 = Nearly every day Not being able to stop or control worryin = Not at all Worrying too much about different things: 1 = Several days Trouble relaxin = Not at all Being so restless that it is hard to sit still: 0 = Not at all Becoming easily annoyed or irritable: 1 = Several days Feeling afraid as if something awful might happen: 0 = Not at all Total JETHRO-7 score (0-4 normal; 5-9 mild; 10-14 moderate; 15-21 severe): 5 Source: Developed by Drs. Kristian Mijares, Jc Prajapati Kroenke and colleagues, with an educational bing from [employer]. Review of Systems Const Denies chills, Denies fatigue, Denies fever(s), Denies headache(s), Denies malaise and Denies weakness Eyes Denies blurry vision, Denies change in vision, Denies irritation and Denies itchy eyes ENT Denies dysphagia, Denies dizziness, Denies otalgia, Denies headache(s), Denies nasal congestion, Denies neck pain, Denies odynophagia and Denies sore throat Card Denies chest pain, Denies rapid heart rate, Denies irregular heart rhythm, Denies palpitations and Denies dyspnea Resp Denies chest congestion, Denies cough, Denies dyspnea and Denies wheezing GI Denies abdominal pain, Denies bloating, Denies constipation, Denies dysphagia, Denies heartburn, Denies diarrhea, Denies nausea, Denies odynophagia and Denies vomiting Denies hematuria, Denies difficulty urinating, Denies dysuria, Denies urinary frequency and Denies urinary urgency Musc Denies back pain, Denies arthralgias, Denies joint swelling, Denies muscle weakness and Denies neck pain Skin/Breast Denies change in pigmentation, Denies lesions, Denies rash and Denies unusual bruising Neuro Denies dizziness, Denies headache(s), Denies paresthesias and Denies weakness Endo Denies fatigue and Denies palpitations Aller/Immun Denies itchy eyes and Denies wheezing Physical exam (Primary Care) Vital Signs: Last Vital Signs Pulse 93 07/13/24 13:50 BP 124/80 07/13/24 13:50 Pulse Ox 98 07/13/24 13:50 Oxygen Delivery Method Room Air 07/13/24 13:50 BMI result Body Mass Index 34.3 Tobacco/Smoking Status: Tobacco use Status Tobacco use date assessed 07/13/24 07/13/24 13:56 Patient Tobacco Use Status Never used Tobacco 07/13/24 13:52 e-Cigarette/Vaping Use Never Used 07/13/24 13:52 PHQ-9: PHQ-9 Score PHQ-9: Total score 8 07/13/24 14:32 Depression Screening Interpretation: Positive Depression Screening Follow-up: Follow-up Visit Requested Thrive Assessment: Date of Thrive Assessment Date Thrive assessed 07/13/24 07/13/24 13:56 Currently or been in a relationship where the following occur: No concerns reported Const General: no acute distress, alert and awake Orientation/consciousness: patient oriented x3 HENMT Head: Yes normocephalic and Yes atraumatic Ears: external ears normal, TM's normal bilaterally and EAC's normal General nose exam: No nasal discharge present Face and sinus: Yes normal facial exam and Yes sinuses nontender Teeth and gingiva: dentition normal Throat: Yes posterior oropharynx normal and Yes tonsils normal (no TP congestion) Eyes Eyelids: Yes eyelids normal Conjunctivae: conjunctivae normal Pupils: Equal, round and reactive pupils present EOM: EOMs intact bilaterally Neck Neck: Yes no lymphadenopathy and Yes supple Thyroid: Thyroid normal Resp Auscultation: clear to auscultation bilaterally, no rales and no wheezes Cardio Rate: regular rate Rhythm: regular rhythm Heart sounds: no murmurs GI Palpation (GI): Soft to palpation, nontender and No hepatosplenomegaly present Auscultation: normal bowel sounds General: Yes no CVA tenderness Back/Spine/Pelvis Back: no CVA tenderness Thoracic/Lumbar Spine: thoracic and lumbar spine normal to inspection Skin Lesions: no lesions Rashes: no rashes Neuro General: patient oriented x3, moves all extremities, no focal motor deficits and CN's II-XI intact bilaterally Cranial nerves: Yes Equal, round and reactive pupils present Cognition (Neuro): normal cognition Gait exam (Neuro): Normal gait present Extrem General: Yes no clubbing, cyanosis or edema Coding Level of Care Code Est Pt Prev Care 18-39y(10306) Diagnoses Annual physical exam Z00.00 Type 2 diabetes mellitus without complication, without long-term current use of insulin E11.9 Diabetes mellitus type: type 2 Diabetes mellitus long term care administrator insulin use: without long term care administrator use Diabetes mellitus complication status: without complication Vitamin D deficiency E55.9 Mixed hyperlipidemia E78.2 Degeneration of intervertebral disc of lumbar region with discogenic back pain M51.360 Disc-related pain type: discogenic back pain only Obstructive sleep apnea G47.33 Obesity (BMI 30-39.9) E66.9 Additional Codes PHQ-9 - 23294 - PHQ-9 Billing: Yes ([id number]) Assessment & Plan Assessment & Plan (1) Annual physical exam: Code(s): Z00.00 - Encounter for general adult medical examination without abnormal findings Category: Medical Plan: Check labs (2) Diabetes mellitus: Code(s): E11.9 - Type 2 diabetes mellitus without complications Category: Medical Qualifiers: Diabetes mellitus type: type 2 Diabetes mellitus long term care administrator insulin use: without long term care administrator use Diabetes mellitus complication status: without complication Qualified Code(s): E11.9 - Type 2 diabetes mellitus without complications Plan: His HgbA1c was most recently at 7.1% back on 05/05/2024 - goal is at least <7.0% Reinforced diabetic diet Continue Trulicity 0.75 mg SQ once a week and Metformin 1000 mg BID Follow up with endocrinology as scheduled (3) Vitamin D deficiency: Code(s): E55.9 - Vitamin D deficiency, unspecified Category: Medical Plan: Continue Vitamin D3 5000 units QD (4) Mixed hyperlipidemia: Code(s): E78.2 - Mixed hyperlipidemia Category: Medical Plan: Reinforced low cholesterol diet Will recheck his labs and fasting lipids in 4 months for follow up (5) Lumbar degenerative disc disease: Comment: S/P lumbar laminotomy and left L5-S1 minimally invasive microdiscectomy by Dr. Toussaint in 02/2021 Code(s): M51.36 - Other intervertebral disc degeneration, lumbar region Category: Medical Qualifiers: Disc-related pain type: discogenic back pain only Qualified Code(s): M51.360 - Other intervertebral disc degeneration, lumbar region with discogenic back pain only Plan: Reinforced activity and weight-lifting restrictions Continue Acetaminophen ES 500 mg Q 6 hours PRN for pain (6) Obstructive sleep apnea: Comment: As per says home-based sleep study the sleep apnea is mild to moderate with total sleep time AHI 14 .2 As noted above it is maximum in prone position sleep. Ordinarily with tay could be treated with conservative measures including continued weight loss and position therapy. But he is very symptomatic at this time, and is requesting to have the CPAP device. So we are going to order CPAP therapy with auto PAP mode and pressure setting 6- 16 cm, using fullface mask or nasal pillows as per patient's preference . All the instructions pertaining to the CPAP use given to the patient. Will recheck him in 6-8 weeks. Code(s): G47.33 - Obstructive sleep apnea (adult) (pediatric) Category: Medical Plan: Patient states that he has been using his CPAP device consistently when he is sleeping every night and feels that his symptoms have improved significantly with CPAP therapy Follow up with Sleep Medicine as scheduled (7) Obesity (BMI 30-39.9): Code(s): E66.9 - Obesity, unspecified Category: Medical Plan: Reinforced diet/exercise as tolerated/lose weight Plan Follow up in 4 months Orders: Orders Complete Blood Count Auto Diff 4 Months D64.9 - Anemia, unspecified Lipid Panel 4 Months E78.00 - Pure hypercholesterolemia, unspecified Comprehensive [place]. Panel Fast 4 Months E78.00 - Pure hypercholesterolemia, unspecified Hemoglobin A1c 4 Months E11.9 - Type 2 diabetes mellitus without complications Microalbumin, Random (w Creat) 4 Months E11.9 - Type 2 diabetes mellitus without complications TSH reflex Free T4 4 Months E78.00 - Pure hypercholesterolemia, unspecified UA CC w/rflx Micro + Cult 4 Months R30.0 - Dysuria Vitamin B12 and Folate 4 Months E53.8 - Deficiency of other specified B group vitamins Vitamin D 25-OH Total 4 Months E55.9 - Vitamin D deficiency, unspecified
--- OUTSIDE RECORDS SUMMARY | 2024-07-13 16:02 | XMS_ITS | Clinical Summary ---
Author Organization [facility] Address [address] [place] [address] Care Team Providers Care Shactor Name Role Phone Unavailable Primary Care Provider [...]
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
== END 2024-07-13 14:43 | disposition home or self-care (01) ==
LOC: HO.HMCH 13:49
PROVIDERS: PCP Internal Medicine; Visit Provider Internal Medicine
DX: Z00.00 Encounter for general adult medical examination without abnormal findings (principal); E11.9 Type 2 diabetes mellitus without complications; E66.9 Obesity, unspecified; Z68.34 Body mass index [BMI] 34.0-34.9, adult; E55.9 Vitamin D deficiency, unspecified; E78.2 Mixed hyperlipidemia; M51.360 Other intervertebral disc degeneration, lumbar region with discogenic back pain only; G47.33 Obstructive sleep apnea (adult) (pediatric)

== ENCOUNTER → 2024-07-13 13:49 | Outpatient (BNVA) | payer OTHER, SELFPAY | PROVIDERS: PCP Internal Medicine; Visit Provider Internal Medicine | DX: Z00.00 Encounter for general adult medical examination without abnormal findings (principal); E11.9 Type 2 diabetes mellitus without complications; E55.9 Vitamin D deficiency, unspecified; E78.2 Mixed hyperlipidemia; M51.360 Other intervertebral disc degeneration, lumbar region with discogenic back pain only; G47.33 Obstructive sleep apnea (adult) (pediatric); E66.9 Obesity, unspecified; Z68.34 Body mass index [BMI] 34.0-34.9, adult | CPT/HCPCS: 96127; 99395 ==

== ENCOUNTER 2024-08-26 13:06 | Outpatient (AMB) | payer OTHER, SELFPAY ==
--- OUTSIDE RECORDS SUMMARY | 2024-08-26 13:09 | XMS_ITS | Clinical Summary ---
Author Organization [facility] Address [address] [place] [address] Phone Care Team Providers Care Support Specialist Name Role Phone Piotr Kaplan MD Primary Care Provider [phone] Surgical History Surgery Date Site/Laterality Comments OTHER [...] 2005 COVID-19 Vaccine (2023-2 5 season) 2023 Cholesterol Screening (Lipid Panel) 05/09/2024 Depression Screening 05/09/2024 HIV Screening 05/09/2024 Hepatitis C Screening 05/09/2024 Social Influencers of Health Screening 05/09/2024 Influenza Vaccine (Season Ended) 2024 HIB Vaccines Aged Out No longer eligi [...] on patient's age to complete this topic Insurance [place] Care Teams Support Specialist Relationship Specialty Start Date End Date Piotr Kaplan MD [address] [place] [id number] PCP - General Internal Medicine 12/17/11
[2024-08-26 13:28] VITALS: BP 138/90; PULSE 94; O2SAT 95; BMI 35.3
--- NOTE | 2024-08-26 13:28 | MHC.OFFVIS ---
Vital Signs 08/26/24 13:28 Height 5 ft 9 in Weight 239 lb 3.225 oz BMI 35.3 BP 138/90 H Blood Pressure Location Lt brachial Position Sitting Pulse 94 Pulse Source Pulse Oximeter Pulse Oximetry (%) 95 Oxygen Delivery Method Room Air Intake Visit Reasons: T2DM Intake Note: Patient present today for Type 2 Diabetes Mellitus Last Diabetic eye exam: 01/2024 Last Podiatry Visit: Doesn't have one Random Glucose: 273 mg/dl HgA1C: 9.3% Aircraft Electronics Technical Officer Required: No Accompanied by: Self / Same As Patient Allergies dexamethasone Allergy (Mild, Verified 08/26/24 13:35) Hives Medication List - Last Reconciled 08/26/24 by Samantha Day PA-C acetaminophen (Tylenol Extra Strength) 500 mg PO Q6H PRN albuterol sulfate 90 mcg/actuation (Ventolin HFA) 1 inh inhalation QID PRN [B12 250 mcg PO] blood sugar diagnostic (FreeStyle Lite Strips) As directed- 3 times a day blood-glucose meter (FreeStyle Lite Meter kit) As directed- 3 times a day blood-glucose sensor (FreeStyle Satya 3 Plus Sensor device) Use daily As directed to monitor glucose blood-glucose sensor (FreeStyle Satya 3 Sensor device) As directed change every 14 days cholecalciferol (vitamin D3) 125 mcg PO DAILY dulaglutide (Trulicity) 0.75 mg (0.5 mL) subcut QWEEK lancets (FreeStyle Lancets) As directed- 3 times a day metformin 1,000 mg PO BID pen needle, diabetic (Comfort EZ Pen [place]) As directed injects once a day HPI HPI T2DM: Details: Patient is a 39-year-old male with a significant past medical history of type 2 diabetes, anxiety, obesity, JULIA on CPAP presenting today for a follow-up regarding his diabetes. endo: DM-A1c was last 7.1 and today is 9.3. He is on metformin 1000 mg twice a day and was recently started on 0.75 mg weekly of Trulicity. He was tolerating Ozempic well however, insurance issues occurred and he is now on Trulicity 0.75 mg weekly. He states it is not effective and upsets stomach. Does not check his blood sugars. He is needle phobic. He is getting weak and shaky at times and thinks it is low and will eat. complications- denies. He did have an eye exam which was negative for any retinopathy. Overdue for labs. He has had diabetic Education. He was diagnosed around 2016. He has a family history of type 2 diabetes. -He is not on acei or statin CV: Bp today in office is 138/90 He does not know his last LDL. states his cholesterol has been diet controlled. [facility] Medical History (Updated 08/26/24 @ 13:54 by Samantha Day PA-C) Vitamin D deficiency Diabetes mellitus Lumbar degenerative disc disease Mixed hyperlipidemia Obstructive sleep apnea Sleep apnea Hypertension Non-insulin dependent diabetes mellitus Anxiety Low back pain radiating to left lower extremity Obesity (BMI 30-39.9) Headache Type 2 diabetes mellitus with hyperglycemia Left lumbosacral radiculopathy Depression Type 2 diabetes mellitus without complications Low back pain with sciatica Surgical History S/P lumbar microdiscectomy (~02/14/21) Family History Mother No problems noted. Father No problems noted. Daughter Menstrual abnormality Mental health problem Daughter Asthma Social History Housing: Apartment Alcohol intake: current Alcohol intake frequency: holidays/special occasions only Patient Tobacco Use Status: Never used Tobacco e-Cigarette/Vaping Use: Never Used Second Hand Smoke Exposure: No service: No Current occupational status: unemployed Cognitive needs: No Hearing needs: No Vision needs: No Physical Exam Vital Signs: Last Vital Signs Pulse 94 08/26/24 13:28 BP 138/90 H 08/26/24 13:28 Pulse Ox 95 08/26/24 13:28 Oxygen Delivery Method Room Air 08/26/24 13:28 BMI result Body Mass Index 35.3 Const Orientation/consciousness: patient oriented x3 HEENT Ears: hearing grossly normal bilaterally Neck Thyroid: Thyroid normal Lymphatic: no lymphadenopathy noted Resp Auscultation: clear to auscultation bilaterally Cardio Rate: regular rate Rhythm: regular rhythm Heart sounds: S1 normal heart sound present and S2 normal heart sound present Skin General skin exam: no rashes or lesions noted Neuro General: patient oriented x3, gait normal and no focal motor deficits Results AMB Hemoglobin A1c AMB Hemoglobin A1c 9.3 % Last Edit by HYACINTH Roberts on 08/26/24 13:51 Results Reviewed Results Reviewed: Laboratory Last Values Glucose (Clinic) 273 mg/dL (60-115) H 08/26/24 13:37 Laboratory Tests 05/05/24 09:10 Sodium 144 Potassium 4.4 Chloride 111 H Carbon Dioxide 27 Anion Gap 10 L BUN 17 H Creatinine 0.79 Estimated GFR > 60 Random Glucose 125 H Estimat Average Glucose 157 Hemoglobin A1c % 7.1 H AST 34 ALT 61 H Alkaline Phosphatase 73 Triglycerides 129 Cholesterol 128 LDL Cholesterol, Calc 67 HDL Cholesterol 36 L Assessment & Plan Assessment & Plan (1) Type 2 diabetes mellitus with hyperglycemia: Code(s): E11.65 - Type 2 diabetes mellitus with hyperglycemia Category: Medical Qualifiers: Diabetes mellitus mcfp insulin use: without mcfp use Qualified Code(s): E11.65 - Type 2 diabetes mellitus with hyperglycemia Plan: stop trulicity restart ozempic as this was effective in the past restart jardiance 10 mg daily as this was also effective and tolerable continue metformin 1000 mg bid recheck labs in 2 weeks sensors ordered. he is needle phobic and struggles with highs and lows (2) Elevated blood pressure reading in office with white coat syndrome, without diagnosis of hypertension: Code(s): R03.0 - Elevated blood-pressure reading, without diagnosis of hypertension Category: Medical Plan: will recheck in 2-3 weeks Orders: Orders AMB Hemoglobin A1c Today E11.65 - Type 2 diabetes mellitus with hyperglycemia, Z13.9 - Encounter for screening, unspecified Basic Metabolic Panel Today E11.65 - Type 2 diabetes mellitus with hyperglycemia, R03.0 - Elevated blood-pressure reading, without diagnosis of hypertension Medications: New empagliflozin (Jardiance) 10 mg PO QAM 90 tabs 3RF semaglutide (Ozempic) 0.25 mg (0.368 mL) subcut QWEEK 3 mL 2RF Discontinued dulaglutide (Trulicity) Discontinued Reason: Doctor's Order 0.75 mg (0.5 mL) subcut QWEEK 2 mL 4RF blood-glucose sensor (FreeStyle Satya 3 Sensor device) Discontinued Reason: Doctor's Order As directed change every 14 days 2 ea 5RF Coding Level of Care Code Est Pt Level 4 (04639) Complex EM visit Add On G2211 Diagnoses Type 2 diabetes mellitus with hyperglycemia, without long-term current use of insulin E11.65 Diabetes mellitus mcfp insulin use: without mcfp use Elevated blood pressure reading in office with white coat syndrome, without diagnosis of hypertension R03.0
[2024-08-26 13:44] LABS: Glucose, Whole Blood 273 mg/dL (60-115)
== END 2024-08-26 14:04 | disposition home or self-care (01) ==
LOC: HO.ENCR 13:07
PROVIDERS: PCP Internal Medicine; Visit Provider Physician Assistant
DX: Z13.9 Encounter for screening, unspecified (principal); E11.65 Type 2 diabetes mellitus with hyperglycemia; R03.0 Elevated blood-pressure reading, without diagnosis of hypertension

== ENCOUNTER → 2024-08-26 13:06 | Outpatient (BNVA) | payer OTHER, SELFPAY | PROVIDERS: PCP Internal Medicine; Visit Provider Physician Assistant | DX: E11.65 Type 2 diabetes mellitus with hyperglycemia (principal); R03.0 Elevated blood-pressure reading, without diagnosis of hypertension; Z79.84 Long term (current) use of oral hypoglycemic drugs | CPT/HCPCS: 82947; 83036; 99212 ==

== ENCOUNTER 2024-09-16 11:07 | Outpatient (AMB) | payer SELFPAY ==
[2024-09-16 11:17] VITALS: BP 112/80; PULSE 93; O2SAT 97; BMI 35.6
--- NOTE | 2024-09-16 11:17 | A.OFFVIS_ITS ---
Vital Signs 09/16/24 11:17 Height 5 ft 9 in Weight 241 lb 6.499 oz BMI 35.6 BP 112/80 Blood Pressure Location Lt brachial Position Sitting Pulse 93 Pulse Source Pulse Oximeter Pulse Oximetry (%) 97 Oxygen Delivery Method Room Air Intake Visit Reasons: T2DM Intake Note: Patient present today for Type 2 Diabetes Mellitus Last Diabetic eye exam: 2023 Last Podiatry Visit: Doesn't have one Random Glucose: 188 mg/dl HgA1C: 9.3% 08/26/24 Legal Practice Manager Required: No Accompanied by: Significant Other Allergies dexamethasone Allergy (Mild, Verified 09/16/24 11:22) Hives Medication List - Last Reconciled 09/16/24 by Samantha Day PA-C acetaminophen (Tylenol Extra Strength) 500 mg PO Q6H PRN albuterol sulfate 90 mcg/actuation (Ventolin HFA) 1 inh inhalation QID PRN [B12 250 mcg PO] blood sugar diagnostic (FreeStyle Lite Strips) As directed- 3 times a day blood-glucose meter (FreeStyle Lite Meter kit) As directed- 3 times a day blood-glucose sensor (FreeStyle Satya 3 Plus Sensor device) Use daily As directed to monitor glucose cholecalciferol (vitamin D3) 125 mcg PO DAILY empagliflozin (Jardiance) 10 mg PO QAM lancets (FreeStyle Lancets) As directed- 3 times a day metformin 1,000 mg PO BID pen needle, diabetic (Comfort EZ Pen [place]) As directed injects once a day semaglutide (Ozempic) 0.25 mg (0.368 mL) subcut QWEEK HPI HPI T2DM: Details: Patient is a 39-year-old male with a significant past medical history of type 2 diabetes, anxiety, obesity, JULIA on CPAP presenting today for a follow-up regarding his diabetes. endo: DM-A1c was 9.3. He is on metformin 1000 mg twice a day, jardiance 10 mg daily (recently started) and was restarted on ozempic 0.25 mg weekly at last visit. -He was tolerating Ozempic well however, insurance issues occurred and he is now on Trulicity 0.75 mg weekly. He states it is not effective and upsets stomach. 22% very hyperglycemic, 31% hyperglycemic, 47% in range, 0% hypoglycemia Does not check his blood sugars. He is needle phobic. He is getting weak and shaky at times and thinks it is low and will eat. complications- denies. He did have an eye exam which was negative for any retinopathy. Overdue for labs. He has had diabetic Education. He was diagnosed around 2016. He has a family history of type 2 diabetes. -He is not on acei or statin CV: Bp today in office is 112/80. He does not know his last LDL. states his cholesterol has been diet controlled. [facility] Medical History (Updated 08/26/24 @ 13:54 by Samantha Day PA-C) Vitamin D deficiency Diabetes mellitus Lumbar degenerative disc disease Mixed hyperlipidemia Obstructive sleep apnea Sleep apnea Hypertension Non-insulin dependent diabetes mellitus Anxiety Low back pain radiating to left lower extremity Obesity (BMI 30-39.9) Headache Type 2 diabetes mellitus with hyperglycemia Left lumbosacral radiculopathy Depression Type 2 diabetes mellitus without complications Low back pain with sciatica Surgical History S/P lumbar microdiscectomy (~02/14/21) Family History Mother No problems noted. Father No problems noted. Daughter Menstrual abnormality Mental health problem Daughter Asthma Social History Housing: Apartment Alcohol intake: current Alcohol intake frequency: holidays/special occasions only Patient Tobacco Use Status: Never used Tobacco e-Cigarette/Vaping Use: Never Used Second Hand Smoke Exposure: No service: No Current occupational status: unemployed Cognitive needs: No Hearing needs: No Vision needs: No Physical Exam Vital Signs: Last Vital Signs Pulse 93 09/16/24 11:17 BP 112/80 09/16/24 11:17 Pulse Ox 97 09/16/24 11:17 Oxygen Delivery Method Room Air 09/16/24 11:17 BMI result Body Mass Index 35.6 Const Orientation/consciousness: patient oriented x3 HEENT Ears: hearing grossly normal bilaterally Neck Thyroid: Thyroid normal Lymphatic: no lymphadenopathy noted Resp Auscultation: clear to auscultation bilaterally Cardio Rate: regular rate Rhythm: regular rhythm Heart sounds: S1 normal heart sound present and S2 normal heart sound present Skin General skin exam: no rashes or lesions noted Neuro General: patient oriented x3, gait normal and no focal motor deficits Assessment & Plan Assessment & Plan (1) Type 2 diabetes mellitus with hyperglycemia: Code(s): E11.65 - Type 2 diabetes mellitus with hyperglycemia Category: Medical Qualifiers: Diabetes mellitus detention insulin use: without detention use Qualified Code(s): E11.65 - Type 2 diabetes mellitus with hyperglycemia Plan: increase jardiance to 25 Increase Ozempic to 0.5 mg weekly Continue metformin Follow up 3 months. Labs prior to appointment. Ordered today. (2) Mixed hyperlipidemia: Code(s): E78.2 - Mixed hyperlipidemia Category: Medical Plan: We will check labs. Orders: Orders Comprehensive [place]. Panel Fast Today E11.65 - Type 2 diabetes mellitus with hyperglycemia, E78.2 - Mixed hyperlipidemia Hemoglobin A1c Today E11.65 - Type 2 diabetes mellitus with hyperglycemia, E78.2 - Mixed hyperlipidemia, R73.01 - Impaired fasting glucose Microalbumin, Random (w Creat) Today E11.65 - Type 2 diabetes mellitus with hyperglycemia, E78.2 - Mixed hyperlipidemia Lipid Panel Today E11.65 - Type 2 diabetes mellitus with hyperglycemia, E78.2 - Mixed hyperlipidemia Medications: New empagliflozin (Jardiance) 25 mg PO QAM 90 tabs 1RF semaglutide (Ozempic) 0.5 mg (0.736 mL) subcut QWEEK 3 mL 5RF Discontinued empagliflozin (Jardiance) Discontinued Reason: Doctor's Order 10 mg PO QAM 90 tabs 3RF semaglutide (Ozempic) Discontinued Reason: Doctor's Order 0.25 mg (0.368 mL) subcut QWEEK 3 mL 2RF Coding Level of Care Code Est Pt Level 4 (59417) Complex EM visit Add On G2211 Diagnoses Type 2 diabetes mellitus with hyperglycemia, without long-term current use of insulin E11.65 Diabetes mellitus detention insulin use: without detention use Mixed hyperlipidemia E78.2
[2024-09-16 11:28] LABS: Glucose, Whole Blood 188 mg/dL (60-115)
--- OUTSIDE RECORDS SUMMARY | 2024-09-16 12:11 | XMS_ITS | Clinical Summary ---
Author Organization [facility] Address [address] [place] [address] Phone Care Team Providers Care Crm Developer Name Role Phone Piotr Kaplan MD Primary Care Provider [phone] Surgical History Surgery Date Site/Laterality Comments OTHER [...] - [place] Care Teams Crm Developer Relationship Specialty Start Date End Date Piotr Kaplan MD [address] [place] [id number] PCP - General Internal Medicine 12/17/11
== END 2024-09-16 11:42 | disposition home or self-care (01) ==
PROVIDERS: PCP Internal Medicine; Visit Provider Physician Assistant
DX: E11.65 Type 2 diabetes mellitus with hyperglycemia (principal); E78.2 Mixed hyperlipidemia

== ENCOUNTER → 2024-09-16 11:07 | Outpatient (BNVA) | payer SELFPAY | PROVIDERS: PCP Internal Medicine; Visit Provider Physician Assistant | DX: E11.65 Type 2 diabetes mellitus with hyperglycemia (principal); E78.2 Mixed hyperlipidemia; F41.9 Anxiety disorder, unspecified; E66.9 Obesity, unspecified; G47.33 Obstructive sleep apnea (adult) (pediatric); Z99.89 Dependence on other enabling machines and devices; Z68.35 Body mass index [BMI] 35.0-35.9, adult; Z79.899 Other long term (current) drug therapy | CPT/HCPCS: 82947; 99212 ==

== ENCOUNTER 2025-01-06 10:17 | Outpatient (AMB) | payer SELFPAY ==
--- NOTE | 2025-01-06 10:20 | A.OFFVIS_ITS ---
Vital Signs 01/06/25 10:27 01/06/25 11:07 Height 5 ft 9 in Weight 241 lb 13.553 oz BMI 35.7 BP 142/102 H 142/96 H Blood Pressure Location Lt brachial Lt brachial Position Sitting Sitting Pulse 105 H Pulse Source Pulse Oximeter Pulse Oximetry (%) 96 Oxygen Delivery Method Room Air Intake Visit Reasons: dm2 Intake Note: Patient present today for Type 2 Diabetes Mellitus Last Diabetic eye exam: Last exam was in 2024 Last Podiatry Visit: Doesn't have one Random Glucose: 199 mg/dl HgA1C: 8.3% City Manager Required: No Accompanied by: Self / Same As Patient Allergies dexamethasone Allergy (Mild, Verified 01/06/25 10:38) Hives Medication List - Last Reconciled 01/06/25 by Samantha Dya PA-C acetaminophen (Tylenol Extra Strength) 500 mg PO Q6H PRN albuterol sulfate 90 mcg/actuation (Ventolin HFA) 1 inh inhalation QID PRN [B12 250 mcg PO] blood sugar diagnostic (FreeStyle Lite Strips) As directed- 3 times a day blood-glucose meter (FreeStyle Lite Meter kit) As directed- 3 times a day blood-glucose sensor (FreeStyle Satya 3 Plus Sensor device) Use daily As directed to monitor glucose cholecalciferol (vitamin D3) 125 mcg PO DAILY lancets (FreeStyle Lancets) As directed- 3 times a day metformin ER (Glucophage XR) 500 mg PO DAILY pen needle, diabetic (Comfort EZ Pen [place]) As directed injects once a day tirzepatide (Mounjaro) 2.5 mg (0.5 mL) subcut QWEEK HPI HPI dm2: Details: Patient is a 39-year-old male with a significant past medical history of type 2 diabetes, anxiety, obesity, JULIA on CPAP presenting today for a follow-up regarding his diabetes. endo: DM-A1c is 8.3. He is on supposed to be on metformin 1000 mg twice a day, jardiance 25 mg daily and ozempic 0.5 mg weekly at last visit. -has been off of meds for a couple months. He is using metformin 1 tab intermittently. He d/c'd jardiance. He does not want to be ozempic because it upsets his stomach. -He is doing 24 hr fasts every couple days. -He was tolerating Ozempic well however, insurance issues occurred and he is now on Trulicity 0.75 mg weekly. He states it is not effective and upsets stomach. Does not check his blood sugars. complications- denies. He did have an eye exam which was negative for any retinopathy. Overdue for labs. He has had diabetic Education. He was diagnosed around 2016. He has a family history of type 2 diabetes. -He is not on acei or statin CV: Bp today in office is 142/102. He states it is only high right now because he had a very large energy drink prior to arrival. He states that he is sensitive to them and does not normally drink them. He does not know his last LDL. states his cholesterol has been diet controlled. [facility] Medical History (Updated 08/26/24 @ 13:54 by Samantha Day PA-C) Vitamin D deficiency Diabetes mellitus Lumbar degenerative disc disease Mixed hyperlipidemia Obstructive sleep apnea Sleep apnea Hypertension Non-insulin dependent diabetes mellitus Anxiety Low back pain radiating to left lower extremity Obesity (BMI 30-39.9) Headache Type 2 diabetes mellitus with hyperglycemia Left lumbosacral radiculopathy Depression Type 2 diabetes mellitus without complications Low back pain with sciatica Surgical History S/P lumbar microdiscectomy (~02/14/21) Family History Mother No problems noted. Father No problems noted. Daughter Menstrual abnormality Mental health problem Daughter Asthma Social History Housing: Apartment Alcohol intake: current Alcohol intake frequency: holidays/special occasions only Patient Tobacco Use Status: Never used Tobacco e-Cigarette/Vaping Use: Never Used Second Hand Smoke Exposure: No service: No Current occupational status: unemployed Cognitive needs: No Hearing needs: No Vision needs: No Physical Exam Vital Signs: Last Vital Signs Pulse 105 H 01/06/25 10:27 BP 142/102 H 01/06/25 10:27 Pulse Ox 96 01/06/25 10:27 Oxygen Delivery Method Room Air 01/06/25 10:27 BMI result Body Mass Index 35.7 Const Orientation/consciousness: patient oriented x3 HEENT Ears: hearing grossly normal bilaterally Neck Thyroid: Thyroid normal Lymphatic: no lymphadenopathy noted Resp Auscultation: clear to auscultation bilaterally Cardio Rate: regular rate Rhythm: regular rhythm Heart sounds: S1 normal heart sound present and S2 normal heart sound present Skin General skin exam: no rashes or lesions noted Neuro General: patient oriented x3, gait normal and no focal motor deficits Results AMB Hemoglobin A1c AMB Hemoglobin A1c 8.3 % Last Edit by HYACINTH Roberts on 01/06/25 10:51 Results Reviewed Results Reviewed: Laboratory Last Values Glucose (Clinic) 199 mg/dL (60-115) H 01/06/25 10:41 Laboratory Tests 05/05/24 08/26/24 09/16/24 09:10 13:42 11:24 Creatinine 0.79 Estimated GFR > 60 Glucose (Clinic) 188 H Estimat Average Glucose 157 Hgb A1c (Clinic) 9.3 H Triglycerides 129 Cholesterol 128 LDL Cholesterol, Calc 67 HDL Cholesterol 36 L Assessment & Plan Assessment & Plan (1) Type 2 diabetes mellitus with hyperglycemia: Code(s): E11.65 - Type 2 diabetes mellitus with hyperglycemia Category: Medical Qualifiers: Diabetes mellitus penitentiary insulin use: without penitentiary use Qualified Code(s): E11.65 - Type 2 diabetes mellitus with hyperglycemia Plan: We will switch to Mounjaro. Discussed risks and benefits and adverse of medication We will start metformin 500 mg once a day. Sensor given today. Follow up 3 months. Labs prior to appointment. Ordered today. (2) Mixed hyperlipidemia: Code(s): E78.2 - Mixed hyperlipidemia Category: Medical Plan: We will check labs. (3) Elevated blood pressure reading in office with white coat syndrome, without diagnosis of hypertension: Code(s): R03.0 - Elevated blood-pressure reading, without diagnosis of hypertension Category: Medical Plan: He will monitor home. Short term follow up. Orders: Orders AMB Hemoglobin A1c Today E11.65 - Type 2 diabetes mellitus with hyperglycemia, Z13.9 - Encounter for screening, unspecified Referrals Podiatry Referral E11.65 - Type 2 diabetes mellitus with hyperglycemia, Z79.4 - shelter (current) use of insulin Medications: New tirzepatide (Mounjaro) 2.5 mg (0.5 mL) subcut QWEEK 2 mL 2RF metformin ER (Glucophage XR) 500 mg PO DAILY 90 tabs 0RF Discontinued metformin Discontinued Reason: Doctor's Order 1,000 mg PO BID 180 tabs 3RF empagliflozin (Jardiance) Discontinued Reason: Doctor's Order 25 mg PO QAM 90 tabs 1RF Coding Level of Care Code Est Pt Level 4 (36710) Complex EM visit Add On G2211 Diagnoses Type 2 diabetes mellitus with hyperglycemia, without long-term current use of insulin E11.65 Diabetes mellitus penitentiary insulin use: without penitentiary use Mixed hyperlipidemia E78.2 Elevated blood pressure reading in office with white coat syndrome, without diagnosis of hypertension R03.0
[2025-01-06 10:27] VITALS: BP 142/102; PULSE 105; O2SAT 96; BMI 35.7
[2025-01-06 10:46] LABS: Glucose, Whole Blood 199 mg/dL (60-115)
[2025-01-06 11:07] VITALS: BP 142/96
--- OUTSIDE RECORDS SUMMARY | 2025-01-06 11:10 | XMS_ITS | Clinical Summary ---
Author Organization [facility] Address [address] [place] [address] Care Team Providers Care Client Delivery Specialist Name Role Phone Unavailable Primary Care Provider Unavailabl e Social History Tobacco Use Types Packs/Day Years Used Date Smoking Tobacco: Never Assessed Sex and Gender Information Value Date Recorded Sex Assigned at Not on file Legal Sex Male 4:19 PM EDT Gender Identity Not on file Sexual Orientation Not on file Plan of Treatment Health Maintenance Due Date Last Done Comments Hepatitis C Virus Screening 1986 HIV Screening 08/16/1999 DTaP/Tdap/Td Vaccines (1 - Tdap) 2005 Hepatitis B Vaccines (1 of 3 - 19+ 3-dose series) 2005 COVID-19 Vaccine ( - 2023-2 5 season) 2024 HPV Vaccines (No Doses Required) Completed Pneumococcal Vaccine: Pediat wilma (0-5 Years) and At-Risk Patients (6 to 49 Years) Aged Out No longer eligible b ased on patient's age to complete this topic
--- OUTSIDE RECORDS SUMMARY | 2025-01-06 11:10 | XMS_ITS | Clinical Summary ---
Author Organization [facility] Address [address] [place] [address] Phone Care Team Providers Care Programming Development Project Manager Name Role Phone Piotr Kaplan MD Primary Care Provider [phone] Surgical History Surgery Date Site/Laterality Comments OTHER [...] of 3 - 19+ 3-dose series) 2005 HPV Vaccines (1 - 3-dose SCD M series) 2013 Depression Screening 04/06/2024 Cholesterol Screening (Lipid Panel) 05/09/2024 HIV Screening 05/09/2024 Hepatitis C Screening 05/09/2024 Social Influencers of Health Screening 05/09/2024 COVID-19 Vaccine ( - 2023-2 5 season) 2024 Influenza Vaccine (#1) 2024 RSV Immunization Adult Patie nts (1 - 1-dose 75+ series) 2061 HIB Vaccines Aged Out No longer eligi [...] 5 Years) and At-Risk Patients (6 to 49 Years) Aged Out No longer eligible b ased on patient's age to complete this topic RSV Immunization Patients Un yfn 20 months Aged Out No longer eligible b ased on patient's age to complete this topic Varicella Vaccines Aged Out No longer eligible based on patient's age to complete this topic Insurance [place] - [place] [facility] [place] - [place] [facility] Care Teams Programming Development Project Manager Relationship Specialty Start Date End Date Piotr Kaplan MD [address] [place] [id number] PCP - General Internal Medicine 12/17/11
== END 2025-01-06 11:06 | disposition home or self-care (01) ==
LOC: HO.ENCR 10:18
PROVIDERS: PCP Internal Medicine; Visit Provider Physician Assistant
DX: E11.65 Type 2 diabetes mellitus with hyperglycemia (principal); E78.2 Mixed hyperlipidemia; R03.0 Elevated blood-pressure reading, without diagnosis of hypertension; Z13.9 Encounter for screening, unspecified

== ENCOUNTER → 2025-01-06 10:17 | Outpatient (BNVA) | payer SELFPAY | PROVIDERS: PCP Internal Medicine; Visit Provider Physician Assistant | DX: E11.65 Type 2 diabetes mellitus with hyperglycemia (principal); E66.9 Obesity, unspecified; G47.33 Obstructive sleep apnea (adult) (pediatric); E78.2 Mixed hyperlipidemia; R03.0 Elevated blood-pressure reading, without diagnosis of hypertension; Z99.89 Dependence on other enabling machines and devices; Z79.84 Long term (current) use of oral hypoglycemic drugs; Z79.899 Other long term (current) drug therapy | CPT/HCPCS: 82947; 83036; 99212 ==